=== PATIENT | female | born 2000 | race Caucasian/White ===

== ENCOUNTER 2024-04-22 10:04 | Observation (INO) | payer OTHER, SELFPAY ==
[2024-04-22 11:15] LABS: Appearance Urine Clear (Clear); Bacteria Urine 1+ /hpf; Bilirubin Urine Negative (Negative); Blood Urine Negative (Negative); Color Urine Yellow (Yellow); Glucose Urine UA Negative (Negative); Ketones Urine Negative (Negative); Leukocyte Esterase Ur 1+ LEU/UL (Negative); Nitrate Urine Negative (Negative); Non Pathogenic Casts 0-2; Protein Urine Negative (Negative); RBC Urine 0-2 /hpf (0-2); Specific Grav Ur 1.017 (1.001-1.035); Squamous Epithelial Cell Urine Few /hpf (Few); Urobilinogen Urine 0.2 mg/dL (<2.0); WBC Urine 21-50 /hpf (0-3); pH Urine 8.5 (5.0-9.0)
[2024-04-22 11:29] LABS: Add Urine Microscopic? YES
--- NOTE | 2024-04-25 11:32 | PM.OBTRLD ---
OB - Triage/Final Diagnosis Visit Information Reason for evaluation: threatened labor Comments/Additional reasons for admission: I have assessed the risk for this patient, Jazmine Bowman, and determined that she would benefit from observation care. Evaluation Laboratory results: Laboratory Tests 04/22/24 10:51 Urine Color Yellow Urine Appearance Clear Urine pH 8.5 Ur Specific [place] 1.017 Urine Protein Negative Urine Glucose (UA) Negative Urine Ketones Negative Ur Blood (Man) Negative Urine Nitrate Negative Urine Bilirubin Negative Urine Urobilinogen 0.2 Leukocyte Esterase Rfl 1+ H Urine RBC 0-2 Urine WBC 21-50 H Ur Squamous Epith Cells Few Urine Bacteria 1+ H Urine Casts 0-2
== END 2024-04-22 12:00 | disposition home or self-care (01) ==
PROVIDERS: Advanced Practice Midwife; Admitting Provider Obstetrics & Gynecology; Visit Provider Obstetrics & Gynecology
DX: O47.03 False labor before 37 completed weeks of gestation, third trimester (principal); Z3A.35 35 weeks gestation of pregnancy
CPT/HCPCS: 81001; 87086; 87088; G0378; G0379

== ENCOUNTER 2024-05-05 15:07 | Outpatient (CLI) | payer OTHER, SELFPAY ==
--- NOTE | ~2024-05-05 | US_ITS ---
EXAMINATION: US OB follow up DATE: 05/05/2024 15:36 INDICATION: Expected size less than expected for estimated gestational age TECHNIQUE: Real-time ultrasound of the pelvis was performed. The interpreting radiologist was not pre sent for the study. COMPARISON: None. FINDINGS: There is a single living fetus in vertex presentation. The placenta is posterior and not low-lying. heart rate is 146 beats per minute (bpm). The amniotic fluid index is 7.8 cm, which is normal (5th%-95%: 7.5-24.4 cm at 37 weeks estimated gestational age). The following biometric data were obtained: BPD: 8.8 cm -> 35 weeks 4 days Head circumference: 33.2 cm -> 37 weeks 6 days Abdominal circumference: 34.5 cm -> 38 weeks 3 days Femur length: 7.0 cm -> 35 weeks 6 days These measurements are concordant. Head circumference to abdominal circumference ratio: 0.96 (normal range 0.92-1.05). Estimated weight: 3189 g (+/-) 478 g or 7 lbs. 0 oz. (+/-) 1 lb. 1 oz. IMPRESSION: 1. Single living fetus in vertex presentation with heart rate of 146 bpm. 2. Gestational age by ultrasound of 37 weeks 0 day(s) +/- 2 week(s) 4 day(s) with ultrasound estimate d date of delivery (VIPUL) of 05/26/2024. Estimated weight is 66th percentile by Hadlock criteria when 05/26/2024 is used as the VIPUL. Please correlate with clinical information or earlier ultrasounds for most accurate VIPUL. 3. Normal amniotic fluid index of 7.8 cm. Reviewed, dictated and finalized at location B. IMPRESSION: 1. Single living fetus in vertex presentation with heart rate of 146 bpm. 2. Gestational age by ultrasound of 37 weeks 0 day(s) +/- 2 week(s) 4 day(s) wi th ultrasound estimated date of delivery (VIPUL) of 05/26/2024. Estimated we ight is 66th percentile by Hadlock criteria when 05/26/2024 is used as the VIPUL. Please correlate with clinical information or earlier ultrasounds for most accu rate VIPUL. 3. Normal amniotic fluid index of 7.8 cm.
== END 2024-05-05 15:08 ==
LOC: MICIMG 15:08
PROVIDERS: PCP Advanced Practice Midwife; Visit Provider Advanced Practice Midwife
DX: O36.5930 Maternal care for other known or suspected poor fetal growth, third trimester, not applicable or unspecified (principal); Z3A.37 37 weeks gestation of pregnancy
CPT/HCPCS: 76816

== ENCOUNTER 2024-05-16 16:30 | Inpatient (IN) | payer OTHER, SELFPAY ==
[2024-05-16] VITALS (94 sets, daily range): BP systolic 93–139; BP diastolic 53–101; PULSE 37–146; TEMP 36.7–36.8; O2SAT 84–100; BMI 26.3
[2024-05-16 17:51] LABS: Basophils Absolute Auto 0.1 K/mm3 (0.0-0.1); Basophils Percent Auto 0.3 % (0.2-1.2); Eosinophils Absolute Auto 0.1 K/mm3 (0-0.3); Eosinophils Percent Auto 0.4 % (0-4.4); Hematocrit 35.8 % (37.0-47.0); Hemoglobin 11.8 g/dL (12.0-15.0); Immature Granulocyte Absolute 0.12 K/mm3 (0.00-0.031); Immature Granulocyte Percent A 0.7 % (0-0.5); Lymphocytes Absolute Auto 2.73 K/mm3 (0.9-3.2); Lymphocytes Percent Auto 16.9 % (18.3-44.2); Mean Corpuscular Hemoglobin 32.2 pg (26-34); Mean Corpuscular Volume 97.5 fl (80-100); Mean Platelet Volume 10.7 fl (7.4-10.4); Monocytes Percent Auto 6.3 % (2.6-8.5); Neutrophils Absolute Auto 12.2 K/mm3 (1.3-6.7); Neutrophils Percent Auto 75.4 % (45.5-73.1); Platelet Count Result 213 k/mm3 (150-375); Red Blood Count 3.67 M/mm3 (4.2-5.4); Red Cell Distribution Width 13.4 % (11.5-14.5); White Blood Count 16.1 K/mm3 (4.5-10.0)
--- NOTE | 2024-05-16 18:39 | WPDANESEPP ---
Anes - Eval Pre Procedure Procedure: Labor Epidural Date/Time: 05/16/24 18:39 Surgeon: Robert Preop Diagnosis: Labor Pain Pre Op Diagnosis: Labor Patient Data Age: 23 Gender: F Height: Weight: Last Vital Signs Pulse 91 05/16/24 18:00 BP 126/80 05/16/24 18:00 Allergies Allergy/AdvReac Type Severity Reaction Status Date / Time No Known Allergies Allergy Verified 04/27/24 15:30 Home Medications Medication Instructions Recorded Confirmed Type ergocalciferol (vitamin D2) 1,250 1,250 mcg PO WEEKLY 04/27/24 04/27/24 History mcg (50,000 unit) capsule vits no.126-ferrous fum 1 tablet PO DAILY 04/27/24 04/27/24 History 28 mg iron-folic acid 800 mcg tablet (Classic ) valacyclovir 500 mg tablet 500 mg PO DAILY 04/27/24 04/27/24 History Laboratory Tests 05/16/24 17:43 WBC 16.1 H K/mm3 (4.5-10.0) RBC 3.67 L M/mm3 (4.2-5.4) Hgb 11.8 L g/dL (12.0-15.0) Hct 35.8 L % (37.0-47.0) MCV 97.5 fl (80-100) MCH 32.2 pg (26-34) MCHC 33.0 g/dl (32-36) RDW 13.4 % (11.5-14.5) Plt Count 213 k/mm3 (150-375) MPV 10.7 H fl (7.4-10.4) Immature Gran % (Auto) 0.7 H % (0-0.5) Neut % (Auto) 75.4 H % (45.5-73.1) Lymph % (Auto) 16.9 L % (18.3-44.2) [place] % (Auto) 6.3 % (2.6-8.5) Eos % (Auto) 0.4 % (0-4.4) Baso % (Auto) 0.3 % (0.2-1.2) Lymph # (Auto) 2.73 K/mm3 (0.9-3.2) [place] # (Auto) 1.0 H K/mm3 (0.1-0.6) Eos # (Auto) 0.1 K/mm3 (0-0.3) Baso # (Auto) 0.1 K/mm3 (0.0-0.1) Abs Immat Gran (auto) 0.12 H K/mm3 (0.00-0.031) Absolute Neuts (auto) 12.2 H K/mm3 (1.3-6.7) Absolute Nucleated RBC 0.000 K/mm3 (0.0-0.012) Nucleated RBC % 0.0 % (0.0-0.2) RPR Pending HIV 1&2 Ab/P24 Ag 4thGn Pending Blood Type Pending Antibody Screen Pending : gestational age (. VIPUL 05/26/24) Patient hx anesthesia problems: none Family hx anesthesia problems: none Results Review: All pre-operative results and documents have been reviewed as part of the pre-operative evaluation. [facility] Family History Family History Other No pertinent family history Social History Social History Substance use: never Spiritual care concerns: No Exam Day of Procedure 05/16/24 18:39 Patient weight: normal Heart: regular rate and rhythm Lungs: normal air movement Airway: Mallampati scale class II Neurological: alert and oriented
[2024-05-16 18:41] LABS: HIV 1/2 Ab P24 Ag Result Negative (Negative)
[2024-05-16] MEDS: OXYTOCIN 30 UNITS/NS 500 ML 30 UNITS/500 ML BAG IV CONT (18:50)
[2024-05-16] MEDS: LACTATED RINGERS 1,000 ML 125 ML IV CONT (18:50)
[2024-05-16 19:08] LABS: OBXCEM Leaking
[2024-05-16] MEDS: ONDANSETRON INJ 4 MG/2 ML VIAL IV PUSH (22:25)
[2024-05-17] VITALS (57 sets, daily range): BP systolic 88–133; BP diastolic 60–99; PULSE 58–128; RESP 16–20; TEMP 36.2–36.7; O2SAT 85–100
[2024-05-17] MEDS: OXYTOCIN 30 UNITS/NS 500 ML 30 UNITS/500 ML BAG 999 UNITS IV CONT (02:46)
--- NOTE | 2024-05-17 03:00 | WPDOBADMIT ---
Obstetrics - Admit Note Admission Note: record reviewed. No pertinent additions to the history and/or any subsequent changes in the physical findings that are not consistent with the expected course of the were found. Additions to the history and/or subsequent changes in the physical findings follow. Admitted from home with SROM.
--- NOTE | 2024-05-17 03:00 | PM.OBPNLAB ---
Pain Control Date/time seen: 05/17/24 CNM called 05/16/24 at 2038 for update. Pt tolerating contractions well. FHTs Cat1 per RN. Continue plan of care. Anticipate vaginal .
--- NOTE | 2024-05-17 03:01 | PM.OBPRVD ---
OB - Vaginal Delivery Note Procedure Delivery date: 05/17/24 Induction method: Per Pitocin Protocol Delivery monitor: External FHT and External Uterine Route of delivery: Episiotomy description: None Laceration Description: Superficial (periurethral) Specimen: No Quantitative Blood Loss (ml): 25 Anesthesia type: Epidural Disposition: Floor Complications: No immediate complications Narrative: Pt presented from home with SROM. There was no evidence of labor and pitocin was started. She received an epidural for pain control. Her labor progressed well and she pushed with contractions once complete. She brought the head to a crown and delivered over an intact perineum. Excellent restitution was observed. There was smooth delivery of the anterior and posterior shoulders followed by the remainder of the infant. The infant was placed on the maternal abdomen and dried and stimulated by the nursery staff. After 1 minute of life, the cord was doubly clamped and cut. Cord blood, cord gases, and cord segment were obtained. The placenta delivered spontaneously in the Schultze presentation. There was excellent uterine tone and hemostasis with very minimal blood loss. The vagina and vulva were inspected and only a 1m, superficial periurethral laceration was noted. This was hemostatic and did not require repair. All delivery counts correct. Mother and baby skin to skin in the delivery room. [place] Baby Date of : 05/17/24 Time of : 02:44 Weeks of gestation at delivery: 38 gender: Male Weight (pounds): 0 (not available at the time of this note. ) presentation: vertex position: Left Occiput Anterior Placenta delivery description: Spontaneous and Normal Configuration Cord Vessel Description: 3 Vessels and Delayed Cord Clamping score one minute: 9 score five minutes: 9
--- NOTE | 2024-05-17 03:10 | PM.OBDSVD ---
DS: Admitting Diagnosis Discharge Date DC 05/19/[address] Jones Admitting Diagnosis 23y.o. at 38 weeks SROM Term Anemia HSV+ DS: Discharge Diagnosis Discharge Diagnosis (1) (normal spontaneous vaginal delivery): Code(s): O80 - Encounter for full-term uncomplicated delivery Status: Acute (2) Intends to breastfeed: Status: Acute OB - DS: Summary Hospital Course Hospital Course: Uncomplicated OB Procedures : Ultrasound OB Procedures Intrapartum: Spontaneous Vag Delivery OB Procedures: : None Peripartum Data Infant Delivery Method: Natural Vaginal Laceration Description: Superficial (periurethral) Episiotomy description: None Time Spent with Patient Time attestation: Total time spent providing and/or coordinating discharge services: DS: Data Data Completed and Pending Labs on day of discharge: Labs from last 24 hours 05/16/24 05/16/24 17:43 16:45 WBC 16.1 H RBC 3.67 L Hgb 11.8 L Hct 35.8 L MCV 97.5 MCH 32.2 MCHC 33.0 RDW 13.4 Plt Count 213 MPV 10.7 H Immature Gran % (Auto) 0.7 H Neut % (Auto) 75.4 H Lymph % (Auto) 16.9 L [place] % (Auto) 6.3 Eos % (Auto) 0.4 Baso % (Auto) 0.3 Lymph # (Auto) 2.73 [place] # (Auto) 1.0 H Eos # (Auto) 0.1 Baso # (Auto) 0.1 Abs Immat Gran (auto) 0.12 H Absolute Neuts (auto) 12.2 H Absolute Nucleated RBC 0.000 Nucleated RBC % 0.0 Membranes Rupture Leaking Membranes Rup Com Yes RPR Pending HIV 1&2 Ab/P24 Ag 4thGn Negative Blood Type A Positive Antibody Screen Negative Discharge Plan Discharge Attending physician on discharge: Frances Jones Consulting providers: Gianna Melissa; Susan Busch; Elida Harman; Raad Brown Jr. Discharging Clinician: Frances Jones Patient Disposition: Home, Self-Care Activity: pelvic rest Diet: as tolerated Wound Care Instructions: follow printed instructions Discharge Instructions: Education: Mom and Baby Guide Given to: Mother Follow-Up: Call your delivering provider's office for an appointment to be seen in: 6 Weeks Mom and baby should come to the [facility] for the follow-up appointment. Appointment Date/Time: May 20, 2024 at 3:30 pm What to expect at your follow-up visit: Physical Assessment Call [phone] if you are unable to keep your appointment time. BREAST CARE: * Wear a snug supportive bra. * For engorgement discomfort: Bottle Feeding: * May apply ice packs EPISIOTOMY/PERINEAL CARE: * Until bleeding stops, use your anabell bottle after urinating * Change your pad frequently throughout the day * You may take sitz baths several times a day (fill your bathtub with warm water and soak for 20 minutes.) Do NOT bathe in the water * No tub baths until seen by your physician - You may shower ACTIVITY: * Rest as much as possible. * Do not exercise or lift anything heavier than your baby (such as laundry or other children.) * Avoid stairs or driving as much as possible. * Do not put anything into the vagina. No douching, tampons, or sexual activity until seen by physician. NOTIFY PHYSICIAN IF YOU HAVE ANY QUESTIONS OR IF ANY OF THE FOLLOWING SYMPTOMS OCCUR: * If your episiotomy or incision becomes red, swollen, or more painful than what you have experienced in the hospital. * If your vaginal bleeding becomes foul smelling. * If your vaginal bleeding becomes more heavy than a period or if your bleeding changes from pink to bright red. However, you may pass an occasional walnut-sized clot once or twice for the first week . * If you experience a sharp, shooting pain in you calves. * If you discover a hard, reddened area on your breast or if you experience flu-like symptoms. DIET: * Eat regular, well-balanced meals. * Drink plenty of fluids daily. If , drink to thirst. Continu
[2024-05-17] MEDS: OXYTOCIN 30 UNITS/NS 500 ML 30 UNITS/500 ML BAG 125 UNITS IV CONT (03:15)
[2024-05-17] MEDS: WITCH HAZEL 40 PADS 1 PAD TOPICAL (05:00)
[2024-05-17] MEDS: BENZOCAINE 20% AER SPR (*SP) 56 GM CAN 1 SPRAY TOPICAL (05:00)
--- NOTE | 2024-05-17 05:16 | OBPPTRN ---
Patient transferred to post room #290 via wheelchair. Support person present. Oriented to unit, room, information board, rooming in, admission packet and security measures. Patient verbalizes understanding.
[2024-05-17] MEDS: valACYclovir HCL 500 MG TABLET PO ×2 (07:21→17:40)
[2024-05-17] MEDS: IBUPROFEN 600 MG TABLET PO ×2 (07:21→17:40)
[2024-05-17] MEDS: MULTIVIT/MIN/PREN/FOL AC/IRON TABLET 1 TAB PO (07:22)
--- NOTE | 2024-05-17 07:29 | P.PNOB_ITS ---
OB - PN: Subj Subjective Date/time seen: 05/17/24 07:29 Interval history: Doing well. Urinating without difficulty. Denies passing any large clots. Denies dizziness with ambulating. Tolerating po food and fluids. Bonding with infant. Bottle feeding Patient comments: no complaints [place] baby status: doing well [place] feeding status: exclusively bottle feeding OB - PN: Obj Data Labs 05/16/24 17:43 Labs: Laboratory Results - last 24 hr 05/16/24 05/16/24 16:45 17:43 WBC 16.1 H RBC 3.67 L Hgb 11.8 L Hct 35.8 L MCV 97.5 MCH 32.2 MCHC 33.0 RDW 13.4 Plt Count 213 MPV 10.7 H Immature Gran % (Auto) 0.7 H Neut % (Auto) 75.4 H Lymph % (Auto) 16.9 L [place] % (Auto) 6.3 Eos % (Auto) 0.4 Baso % (Auto) 0.3 Lymph # (Auto) 2.73 [place] # (Auto) 1.0 H Eos # (Auto) 0.1 Baso # (Auto) 0.1 Abs Immat Gran (auto) 0.12 H Absolute Neuts (auto) 12.2 H Absolute Nucleated RBC 0.000 Nucleated RBC % 0.0 Membranes Rupture Leaking Membranes Rup Com Yes HIV 1&2 Ab/P24 Ag 4thGn Negative Blood Type A Positive Antibody Screen Negative OB - PN A/P Plan day: 0 Plan: routine care Time Spent With Patient Time: Total time spent is greater than 50% in coordination of care (as documented) at patient's floor/unit and/or counseling patient: Review of Systems Review of Systems: All systems reviewed & are unremarkable except as noted in HPI and below Exam Narrative: Alert and oriented. Mood is pleasant and cooperative. Perineum with minimal edema. Fundus firm and below umbilicus. Const: General: cooperative, healthy appearing, no acute distress and alert Orientation/consciousness: patient oriented x3 Limitations: no limitations Resp: Effort & Inspection: normal respiratory effort and able to speak in complete sentences Auscultation: clear to auscultation bilaterally Cardio: Rate: regular rate GI: Inspection: normal to inspection Auscultation: normal bowel sounds : General: Yes bladder normal to palpation External Female Exam: other (lochia WNL) Bimanual exam- vagina & uterus: bladder normal to palpation Other: Fundus firm and below U Skin: General skin exam: normal color and no rashes or lesions noted Neuro: General: patient oriented x3 and moves all extremities Cognition (Neuro): normal cognition Extrem: General: normal to inspection and no calf tenderness Psych: Appearance: grossly normal Mental Status: mental status grossly normal Affect: normal affect Thought process: Normal thought process present
--- NOTE | 2024-05-17 09:35 | WPDANLDPN2 ---
Anes-Prog Note L&D Date/Time: 05/17/24 09:35 Comfortable throughout: labor and delivery Neuraxial method: epidural Epidural/Spinal procedure site: clean & non-tender Neuro status: Neuro function grossly intact. Cardiovascular status: normal Respiratory status: normal Airway patency: baseline Mental status: baseline Post-Op hydration status: normal Vital Signs: Last Vital Signs Temp 36.7 C 05/17/24 07:05 Pulse 91 05/17/24 07:05 Resp 18 05/17/24 07:05 BP 107/60 05/17/24 07:05 Pulse Ox 99 05/17/24 05:45 O2 Del Method Room Air 05/16/24 21:56 Pain score (VAS): 0/10 Post-procedural complaints: none Patient feedback: Patient satisfied with anesthetic care.
[2024-05-17 14:31] LABS: Rapid Plasma Reagin Non-Reactive (NonReactive)
[2024-05-18] MEDS: IBUPROFEN 600 MG TABLET PO ×3 (02:23→19:40)
[2024-05-18 05:39] LABS: Hematocrit 34.3 % (37.0-47.0)
[2024-05-18 07:30] VITALS: BP 112/78; PULSE 79; RESP 18; TEMP 36.7; O2SAT 100
[2024-05-18] MEDS: MULTIVIT/MIN/PREN/FOL AC/IRON TABLET 1 TAB PO (08:30)
[2024-05-18] MEDS: valACYclovir HCL 500 MG TABLET PO ×2 (08:30→16:33)
--- NOTE | 2024-05-18 11:08 | P.PNOB_ITS ---
OB - PN: Subj Subjective Date/time seen: 05/18/24 0730 Interval history: Doing well. Urinating without difficulty. Denies passing any large clots. No dizziness. Tolerating po food and fluids. + Bonding . Bottle feeding Patient comments: no complaints and pain well controlled baby status: doing well and bottle feeding well [place] feeding status: exclusively bottle feeding OB - PN: Obj Data Labs 05/18/24 04:01 Labs: Laboratory Results - last 24 hr 05/16/24 05/18/24 17:43 04:01 Hgb 11.0 L Hct 34.3 L RPR Non-reactive OB - PN A/P Assessment and Plan (1) (normal spontaneous vaginal delivery): Code(s): O80 - Encounter for full-term uncomplicated delivery Status: Acute Plan day: 1 Plan: routine care Time Spent With Patient Time: Total time spent is greater than 50% in coordination of care (as documented) at patient's floor/unit and/or counseling patient: Review of Systems Review of Systems: All systems reviewed & are unremarkable except as noted in HPI and below Exam Narrative: Alert and oriented. Mood is pleasant and cooperative. Perineum with minimal edema. Fundus firm and below umbilicus. Const: General: cooperative, healthy appearing, no acute distress and alert Orientation/consciousness: patient oriented x3 Limitations: no limitations Resp: Effort & Inspection: normal respiratory effort and able to speak in complete sentences Auscultation: clear to auscultation bilaterally Cardio: Rate: regular rate GI: Inspection: normal to inspection Auscultation: normal bowel sounds : General: Yes bladder normal to palpation External Female Exam: other (lochia WNL) Bimanual exam- vagina & uterus: bladder normal to palpation Other: Fundus firm and below U Skin: General skin exam: normal color and no rashes or lesions noted Neuro: General: patient oriented x3 and moves all extremities Cognition (Neuro): normal cognition Extrem: General: normal to inspection and no calf tenderness Psych: Appearance: grossly normal Mental Status: mental status grossly normal Affect: normal affect Thought process: Normal thought process present
[2024-05-18] MEDS: ACETAMINOPHEN 325 MG TABLET 650 MG PO (14:03)
--- NOTE | 2024-05-18 14:51 | WPDANLDPN2 ---
Anes-Prog Note L&D Date/Time: 05/18/24 14:51 Comfortable throughout: labor and delivery Neuraxial method: epidural Epidural/Spinal procedure site: clean & non-tender Neuro status: Neuro function grossly intact. Cardiovascular status: normal Respiratory status: normal Airway patency: baseline Mental status: baseline Post-Op hydration status: normal Vital Signs: Last Vital Signs Temp 98.1 F 05/18/24 07:30 Pulse 79 05/18/24 07:30 Resp 18 05/18/24 07:30 BP 112/78 05/18/24 07:30 Pulse Ox 100 05/18/24 07:30 O2 Del Method Room Air 05/16/24 21:56 Pain score (VAS): 0/10 I/O: Intake & Output 05/17/24 05/18/24 05/18/24 23:59 07:59 15:59 Intake Total 500 Balance 500 Post-procedural complaints: none Patient feedback: Patient satisfied with anesthetic care.
[2024-05-18 19:40] VITALS: BP 118/72; PULSE 69; RESP 18; TEMP 36.8
[2024-05-19] MEDS: IBUPROFEN 600 MG TABLET PO (05:40)
[2024-05-19 07:45] VITALS: BP 121/82; PULSE 99; RESP 16; TEMP 36.1; O2SAT 99
--- NOTE | 2024-05-19 07:51 | PM.OBPNVD ---
OB - PN: Subj Subjective Date/time seen: 05/19/24 07:51 Patient comments: no complaints and pain well controlled baby status: doing well and bottle feeding well OB - PN: Obj Data Labs 05/18/24 04:01 OB - PN A/P Plan day: 2 Plan: routine care, discharge home, follow up 6 weeks and other (plans seasonale for bc) Time Spent With Patient Time: Total time spent is greater than 50% in coordination of care (as documented) at patient's floor/unit and/or counseling patient: Exam : Bimanual exam- vagina & uterus: other (Uterus firm, nt @U)
[2024-05-19] MEDS: valACYclovir HCL 500 MG TABLET PO (09:29)
[2024-05-19] MEDS: ACETAMINOPHEN 325 MG TABLET 650 MG PO (10:04)
[2024-05-20 15:55] VITALS: BP 113/67; PULSE 94; RESP 18; TEMP 36.6; O2SAT 98
== END 2024-05-19 11:30 | disposition home or self-care (01) | DRG 806 ==
LOC: ANHLDR 05-17 03:13 → ANHOB2 05-17 05:21
PROVIDERS: Admitting Provider Obstetrics & Gynecology Gynecology; PCP Advanced Practice Midwife; Visit Provider Obstetrics & Gynecology Gynecology
DX: O99.02 Anemia complicating childbirth (principal); O98.32 Other infections with a predominantly sexual mode of transmission complicating childbirth; Z37.0 Single live birth; Z3A.38 38 weeks gestation of pregnancy; D64.9 Anemia, unspecified; A60.09 Herpesviral infection of other urogenital tract; O71.82 Other specified trauma to perineum and vulva
CPT/HCPCS: 36415; 84112; 85014; 85018; 85025; 86592; 86703; 86850; 86900; 86901; A9270; G0432; J2405; J2590; J2795; J7120

== ENCOUNTER 2025-03-07 19:04 | Emergency (ER) | payer OTHER, SELFPAY ==
--- NOTE | ~2025-03-07 | US_ITS ---
EXAMINATION: US pelvic complete DATE: 03/07/2025 21:44 INDICATION: RLQ pain, 5 weeks, medical , bleeding TECHNIQUE: Multiple transabdominal sonographic images of the pelvis were obtained. COMPARISON: None. FINDINGS: Uterus: 11.0 x 5.8 x 8.3 cm. Endometrial complex is thickened and heterogeneous, measuring 21 mm, wit h some areas of color Doppler flow. Heterogeneous material distends the endocervical canal. The cervi x appears quite dilated and heterogeneous. Right Ovary: Not visualized. Left Ovary: Not visualized. Images marked as left ovary are probably too superficial and may represen t a lymph node. There is no free fluid in the pelvis. IMPRESSION: Sonographic findings concerning for retained products of conception, with related hemorrhage. Dilated heterogeneous appearing cervix, correlate with exam findings and for symptoms of cervicitis. Ovaries not visualized in this transabdominal examination. Reviewed, dictated and finalized at location K. IMPRESSION: Sonographic findings concerning for retained products of conception, with relat ed hemorrhage. Dilated heterogeneous appearing cervix, correlate with exam findings and for sy mptoms of cervicitis. Ovaries not visualized in this transabdominal examination.
--- OUTSIDE RECORDS SUMMARY | 2025-03-07 19:07 | XMS_ITS | Clinical Summary ---
Author Organization [facility] Address [address] [place] [address] Care Team Providers Care Finisher Denture Name Role Phone Unavailable Primary Care Provider Unavailabl e Allergies No known active allergies Medications L-Norgest&E estradiol-E Estrad (Ashlyna) 0.15 mg-30 mcg (84)/10 mcg (7) Tablet, Dose Pack, 3 Months Take by mouth. Active metoclopramide HCl (REGLAN) 10 mg tablet Take 1 Tablet (10 mg) by mouth every 8 hours. 120 Tablet 2 12/04/2023 Active Active Problems Problem Noted Date Diagnosed Date Second 11/05/2023 History of herpes genitalis 10/07/2023 Supervision of normal 10/07/2023 Encounters Date Type Department Care Team Description 02/21/2025 External Device Data STL ABSTRACTION Provider, Abstract 01/25/2025 External Device Data ST[facility] ABSTRACTION Provider, Abstract 01/25/2025 External Device Data [facility] ABSTRACTION Provider, Abstract 01/14/2025 External Device Data ST[facility] ABSTRACTION Provider, Abstract 01/13/2025 External Device Data ST[facility] ABSTRACTION Provider, Abstract 01/11/2025 External Device Data ST[facility] ABSTRACTION Provider, Abstract 12/28/2024 External Device Data STL ABSTRACTION Provider, Abstract from Last 3 Months Social History Tobacco Use Types Packs/Day Years Used Date Smoking Tobacco: Never Smokeless Tobacco: Never Tobacco Cessation:Counseling Given: Not Answered Alcohol Use Standard Drinks/Week Comments Not Currently 0 (1 standard drink = 0.6 oz pur e alcohol) Comments No Sex and Gender Information Value Date Recorded Sex Assigned at Not on file Legal Sex Female 9:34 AM CDT Gender Identity Not on file Sexual Orientation Not on file Last Filed Vital Signs Vital Sign Reading Time Taken Comments Blood Pressure 114/60 02/02/2024 10:06 AM CDT Pulse 103 12/22/2023 11:20 AM CONSULTANT INTERNSHIP Temperature 36.7 C (98.1 F) 12/22/2023 11:20 AM CONSULTANT INTERNSHIP Respiratory Rate 18 12/22/2023 11:20 AM CONSULTANT INTERNSHIP Oxygen Saturation 99% 12/22/2023 11:20 AM CONSULTANT INTERNSHIP Inhaled Oxygen Concentration - - Weight 64.1 kg (141 lb 6.4 oz) 02/02/2024 10:06 AM CDT Height 167.6 cm (5' 6 ) 02/02/2024 10:06 AM CDT Body Mass Index 22.82 02/02/2024 10:06 AM CDT Plan of Treatment Health Maintenance Due Date Last Done Comments DTAP/TDAP/TD VACCINES (5 - Tdap) 2012 03/12/2007, 03/12/2007, 03/12/2007, Additional history exists HPV VACCINES (1 - 3-dose series) 2016 HPV/Cotest (21-29) 2022 INFLUENZA VACCINE (#1) 2024 CHLAMYDIA SCREENING (ANNUAL) 11-24 YEARS 09/22/2024 09/22/2023, 05/29/2021 CERVICAL CANCER SCREENING 09/22/2026 PAP SMEAR 09/22/2026 09/22/2023 HEPATITIS B VACCINES Completed 12/12/2002, 05/02/2002, 02/28/2002 Procedures Procedure Name Priority Date/Time Associated Diagnosis Comments GC/CHLAMYDIA, UROGENITAL Routine 09/22/2023 10:16 AM CONSULTANT INTERNSHIP Screening for STD (sexually transmitted disease) CERV/VAG CYTO AGE BASED SCREEN PAP Routine 09/22/2023 10:16 AM CONSULTANT INTERNSHIP Screening for cervical cancer from Last 3 Months or Most Recently Relevant to Health Maintenance Results * GC/CHLAMYDIA, UROGENITAL (09/22/2023 10:16 AM CONSULTANT INTERNSHIP) C TRAC RNA NOT DETECTED NOT DETECTED [facility] N.GONORRHOEAE RNA, TMA NOT DETECTED NOT DETECTED [facility] COMMENT INFECTIOUS DISEASE [facility] Comment: The analytical performance characteristics of this assay, when used to test SurePath(TM) specimens have been determined by [facility]. The modifications have not been cleared or approved by the FDA. This assay has been validated pursuant to the CLIA regulations and is used for clinical purposes. For additional information, please refer to https://education.Sweet Tooth/faq/XAG052 (This link is being provided for information/ educational purposes only.) Test Performed at: [facility] [address] [place] [address] Breezy Andersen MD Genital SPECIMEN FROM VAGINA / Unknown 09/22/2023 10:16 AM CONSULTANT INTERNSHIP 09/23/2023 8:35 AM CONSULTANT INTERNSHIP Pat Choi GAS PUMPER MICROBIOLOGY - GENERAL ORDERABLE S Final Result [facility] [phone] [facility] [address] [place] [address] * CERV/VAG CYTO AGE BASED SCREEN PAP (09/22/2023 10:16 AM CONSULTANT INTERNSHIP) COMMENT (PAP): [facility] Comment: This order for age-based cervical cancer and STI screening follows ACOG guidelines(PB 168, 140, TFH277). See individual assays for performing site location. CLINICAL INFORMATION [facility] Comment:SCREENING HEALTHY LAST MENSTRUAL PERIOD [facility] Comment:NONE GIVEN PREV PAP: [facility] Comment:NONE GIVEN PREV BX: [facility] [place] Comment:NONE GIVEN SOURCE [facility] Comment:Endocervix ADEQUACY: [facility] Comment: Satisfactory for evaluation. Endocervical/transformation zone component present. Age and/or menstrual status not provided PAP INTERP [facility] Comment: Cytology Results: Negative for intraepithelial lesion or malignancy. CYTOLOGY INFECTION [facility] [place] Comment: Shift in vaginal rabia suggestive of bacterial vaginosis. COMMENT (PAP TEST) [facility] Comment: This Pap test has been evaluated with computer assisted technology. CENTRAL OFFICE TROUBLE SHOOTER: [facility] [place] Comment: GAZ, CT(ASCP) CT screening location: [place] [address] [facility] [address], [address], [place] [address] EXPLANATORY NOTE [facility] [place] Comment: EXPLANATORY NOTE: The Pap is a screening test for cervical cancer. It is not a diagnostic test and is subject to false negative and false positive results. It is most reliable when a satisfactory sample, regularly obtained, is submitted with relevant clinical findings and history, and when the Pap result is evaluated along with historic and current clinical information. C TRAC RNA NOT DETECTED NOT DETECTED [facility] N.GONORRHOEAE RNA, TMA NOT DETECTED NOT DETECTED [facility] COMMENT INFECTIOUS DISEASE [facility] Comment: The analytical performance characteristics of this assay, when used to test SurePath(TM) specimens have been determined by [facility]. The modifications have not been cleared or approved by the FDA. This assay has been validated pursuant to the CLIA regulations and is used for clinical purposes. For additional information, please refer to https://education.Sweet Tooth/faq/PYS289 (This link is being provided for information/ educational purposes only.) Test Performed at: [facility] [address] [place] [address] Breezy Andersen MD TX2 Genital SWAB OF ENDOCERVIX / Unknown 09/22/2023 10:16 AM CONSULTANT INTERNSHIP 09/23/2023 6:22 AM CONSULTANT INTERNSHIP Pat MORGAN PATHOLOGY/CYTOLOGY ORDERABLES Fi nal Result [facility] [phone] [place] [address] [place] [address] from Last 3 Months or Most Recently Relevant to Health Maintenance Insurance [facility] [id number] GENERIC PAYOR [employer] PPO
--- OUTSIDE RECORDS SUMMARY | 2025-03-07 19:07 | XMS_ITS | Data Portability ---
[facility] Address [address] [place] [address] Care Team Providers Care Auto Brake Technician Name Role Phone CONCEPCION SILVA Primary Care Provider Unavailab le Assessment No assessment recorded. Plan of Treatment Reminders Order Date Submit Date Provider Last Modified By Organization Details Last Modified Time Details Appointments None record ed. Lab None record ed. Referral None record ed. Procedures None record ed. Surgeries None record ed. Imaging None record ed. Medication Orders None record ed. Patient TargetsNo targets recorded. Patient InstructionsNo instructions recorded. Reason for Referral None Reported. Problems Name Problem SNOMED Code Status Onset Date Resolution Date Notes Provider Name and Address Organization Details Recorded Time Body mass index 20-24 - normal 061065057 Active 024 Natan Morrow MA null, [facility] 4 10:16:53 state 72875981 Active 024 SCOTTY Harmon Attn: Erika ruth,[address] [place], [address], [facility] 10:40:16 Problem Notes None recorded. Medical Equipment None Reported. Allergies No known drug allergies Medications Name Sig Start Date Stop Date Status Note LastModified by Organization Details LastModified Time promethazine 12.5 mg tablet 10/03 completed Not Available Not Available Not Available metronidazole 500 mg tablet 10/03 completed Not Available Not Available Not Available valacyclovir 500 mg tablet 10/03 completed Not Available Not Available Not Available cephalexin 500 mg capsule 10/03 completed Not Available Not Available Not Available ergocalciferol (vitamin D2) 1,250 mcg (50,000 unit) capsule 10/03 completed Not Available Not Available Not Available metoclopramide 10 mg tablet 10/03 completed Not Available Not Available Not Available Ashlyna 0.15 mg-30 mcg (84)/10 mcg(7) tablets,3 month dose pack active Not Available Not Available No t Available Vitals Date Recorded Body weight Body mass index (BMI) Body height Respiratory rate Oxygen saturation Oxygen saturation in Arterial blood by Pulse oximetry Heart rate Systolic blood pressure Diastolic blood pressure Provider Name and Address Organization Details Last Updated DateTime 64646.7 9 g 20.4 kg/m2 167.64 cm 18 /min 99 % 99 % 88 /min 126 mm[Hg] 82 mm[Hg] Natan Morrow [place] - [facility] 10:20:57 Date Recorded Systolic blood pressure Diastolic blood pressure Provider Name and Address Organization Details Last Updated DateTime 10/03/2024 122 mm[Hg] 82 mm[Hg] SCOTTY Harmon Attn: Accounting,[address] [place], [address], [facility] 10/03/2024 10:32:56 Social History Question Answer Notes LastModified by Organizat ion Details LastModified Time Tobacco Smoking Status Never Smoker Natan Morrow MA null, [facility] 10/03/2024 10:18:22 Do You Have An Advance Directive? No Information n ot available 10/03/2024 What Is Your Level Of Alcohol Consumption? Moderate Information not available 10/03/2024 Are You Blind Or Do You Have Difficulty Seeing? No Information n ot available 10/03/2024 What Is Your Level Of Caffeine Consumption? Moderate Information not available 10/03/2024 In The 14 Days Before Symptom Onset, Have You Had Close Contact With A Laboratory-confirm ed COVID-19 While That Case Was Ill? No Information n ot available 10/03/2024 In The 14 Days Before Symptom Onset, Have You Had Close Contact With A Person Who Is Under Investigation For COVID-19 While That Person Was Ill? No Information not available 10/03/2024 Have You Been To An Area Known To Be High Risk For COVID-19? No Information not available 10/03/2024 Are You Currently Employed? Yes Information not available 10/03/2024 Are You Deaf Or Do You Have Serious Difficulty Hearing? No Information not available 10/03/2024 What Type Of Diet Are You Following? REGULAR Information n ot available 10/03/2024 Are There Any Guns Present In Your Home? No Information not available 10/03/2024 What Was The Date Of Your Most Recent Tobacco Screening? 10/03/2024 Information not available 10/03/2024 Do You Use Your Seat Belt Or Car Seat Routinely? Yes Information not available 10/03/2024 Do You Have Smoke And Carbon Monoxide Detectors In Your Home? Yes Information not available 10/03/2024 Do You Feel Stressed (tense, Restless, Nervous, Or Anxious, Or Unable To Sleep At Night)? [id number] Information not available 10/03/2024 Do You Use Any Illicit Or Recreational Drugs? No Information not available 10/03/2024 Do You Use Sunscreen Routinely? No Information not available 10/03/2024 Has Tobacco Cessation Counseling Been Provided? No Information not available 10/03/2024 Do You Or Have You Ever Used Any Other Forms Of Tobacco Or Nicotine? No Information not available 10/03/2024 Sex: Unknown Functional Status Question Answer Note LastModified by Organizat ion Details LastModified Time Are you able to care for yourself? Yes Information not available 10/03/2024 What is your exercise level? Occasional Information not available 10/03/2024 Mental Status None recorded. Family History Nothing Reported. Medical History No medical history recorded. Gynecological History Statement/Question Response Duration of Flow (days) Current Control Method BCPs Flow Moderate Date of LMP 06/16/2024 LMP Approximate Obstetrics History GPAL:G 1 P 1 0 0 1 Type Value Full Term 1 Induced 0 Spontaneous 0 Premature 0 Living 1 Total 1 Immunizations Vaccine Type Date Status Note Provider Jesus jefferson and Address Organization Details Recorded Time Hib-Hep B 3 completed Natan [place] null, [place] - [facility] 10/03/2024 10:18:43 Hib-Hep B 2 completed [place]an [place] [facility] 10/03/2024 10:18:43 Hib-Hep B 2 completed Natan [place] [facility] 10/03/2024 10:18:43 IPV 3 completed Natan [place] [facility] 10/03/2024 10:18:43 IPV 2 completed Natan [place] [facility] 10/03/2024 10:18:43 IPV 7 completed Natan [place] [facility] 10/03/2024 10:18:43 IPV 2 completed [place]an [place] [facility] 10/03/2024 10:18:43 MMR 3 completed [place] [facility] 10/03/2024 10:18:43 MMR 7 completed [place]an [place] [facility] 10/03/2024 10:18:43 COVID-19, mRNA, LNP-S, PF, 30 mcg/0.3 mL dose 1 completed Natan [place] [facility] 10/03/2024 10:18:43 COVID-19, mRNA, LNP-S, PF, 30 mcg/0.3 mL dose 1 completed Natan [place] [facility] 10/03/2024 10:18:43 pneumococcal conjugate PCV 7 2 completed Natan [place] [facility] 10/03/2024 10:18:43 pneumococcal conjugate PCV 7 3 completed [place]an [place] [facility] 10/03/2024 10:18:43 pneumococcal conjugate PCV 7 2 completed [place]an [place] [facility] 10/03/2024 10:18:43 pneumococcal conjugate PCV 7 2 completed [place]an [place] [facility] 10/03/2024 10:18:43 varicella 3 completed STACY [place], [place] - [facility] 10/03/2024 10:18:43 varicella 7 completed STACY Wilson, [place] - [facility] 10/03/2024 10:18:43 varicella 6 completed STACY Wilson, [place] - [facility] 10/03/2024 10:18:43 meningococcal MCV4P 9 completed STACY Wilson, [place] - [facility] 10/03/2024 10:18:43 DTaP 7 completed STACY Wilson, [place] - [facility] 10/03/2024 10:18:43 DTaP, 5 pertussis antigens 3 completed STACY Wilson, [place] - [facility] 10/03/2024 10:18:43 DTaP, 5 pertussis antigens 2 completed STACY [place] - [facility] 10/03/2024 10:18:43 DTaP, 5 pertussis antigens 2 completed [place] [facility] 10/03/2024 10:18:43 DTaP, 5 pertussis antigens 2 completed STACY [place] [facility] 10/03/2024 10:18:43 Past Encounters Encounter ID Performer Location Encounter Start Date Encounter Closed Date Diagnosis/Indication Diagnosis SNOMED-CT Code Diagnosis ICD10 Code Diagnosis Note [id number] SCOTTY Harmon [facility] [place] [address] [place] [address] 10/03/2024 10:07:03 10/03/2024 10:50:27 Adult health examination 775272483 Z00.00 new pt wellness completed. labs declined because she just had them all during Body mass index 20-24 - normal 849939247 Z68.20 BMI is 20.4 state 5087133 1 Z39.2 Patient is doing very well with no acute concerns. No anxiety or depression . Her baby is sleeping through the night and very easy so far and he is eating well. Change in stool consistency 195164562 R19.5 Patient has just had some harder smaller stool since the delivery of her son 5 months ago. She has no blood in the stool. I have suggested she add a daily probiotic and continue the fiber supplement she just started and make sure she is getting enough water and not just coffee. Health Concerns Section Related Observation LastModified by Organization Detai ls LastModified Time None Recorded Concern Status LastModified by Organization Details LastModified Time None Recorded Advance Directives Directive N: Payers Encounter Date Sequence Insurance Name Policy Number Policy Craig Covered Member ID Craig Member ID Guarantor Name 10/03/2024 1 [employer] ([employer]) - OPEN ACCESS [id number] Mac Bowman [id number] PILY Bowman Notes Date Note Type Note Provider Name and Address Organization Details Recorded Time 10/03/2024 text/html 5 months post ; doing well. no c/o anxiety or depression. feeling good, sleep well. Dr. Jones is OB/gyne SCOTTY Harmon Attn: Accounting,[address] [place], [address], [facility] 10/03/2024 10:41:29 OBGyn Episode No OBEpisode recorded.
--- OUTSIDE RECORDS SUMMARY | 2025-03-07 19:07 | XMS_ITS | Referral Summary ---
Author Organization [address] Address [address] [place] [address] Care Team Providers Care Upholstery Department Supervisor Name Role Phone Unknown, Notinfile Primary Care Provider Unavail able Allergies No known active allergies Medications Ashlyna 0.15 mg-30 mcg (84)/10 mcg (7) tablets,dose pack,3 month Take 1 tablet by mouth daily 09/21/2019 Active Active Problems No known active problems Social History Tobacco Use Types Packs/Day Years Used Date Smoking Tobacco: Never Assessed Personal Safety Answer Date Recorded Getting School Help Needed Not on file 07/31 Comments Unknown Sex and Gender Information Value Date Recorded Sex Assigned at Not on file Legal Sex Female 9:56 AM CDT Gender Identity Not on file Sexual Orientation Not on file Last Filed Vital Signs Vital Sign Reading Time Taken Comments Blood Pressure 108/72 08/01/2024 10:33 AM CDT Pulse 76 08/01/2024 10:33 AM CDT Temperature 36.7 C (98.1 F) 08/01/2024 10:33 AM CDT Respiratory Rate 20 08/01/2024 10:33 AM CDT Oxygen Saturation 99% 08/01/2024 10:33 AM CDT Inhaled Oxygen Concentration - - Weight 59 kg (130 lb) 08/01/2024 10:33 AM CDT Height 167.6 cm (5' 6 ) 08/01/2024 10:33 AM CDT Body Mass Index 20.98 08/01/2024 10:33 AM CDT Plan of Treatment Not on file Insurance [facility] [id number] Care Teams Upholstery Department Supervisor Relationship Specialty Start Date End Date Unknown, Notinfile PCP - General 08/01/24
--- OUTSIDE RECORDS SUMMARY | 2025-03-07 19:07 | XMS_ITS | Clinical Summary ---
Author Organization [address] Address [address] [place] [phone] Care Team Providers Care Sales And Events Coordinator Name Role Phone Unknown, Notinfile Primary Care [...] 08/01/2024 10:33 AM CDT Plan of Treatment Health Maintenance Due Date Last Done Comments Cervical Cancer Screening 2001 Depression Screening 2001 Hepatitis C Screening 2001 DTaP/Tdap/Td Vaccine (6 - Tdap) 2012 03/12/2007, 03/12/2007, 02/06/2003, Additional history exists HPV Vaccines (1 - 3-dose series) 2016 Meningococcal B Vaccine (1 o f 2 - Standard) 2017 Regular Well Visit/Exam 18-64 2019 Covid-19 Vaccine (3 - 2023-2 5 season) 2024 03/23/2021, 02/26/2021 Influenza Vaccine (#1) 2024 Hepatitis B Screening Completed 12/12/2002 , 05/02/2002, 02/28/2002 Pneumococcal vaccine <65 Completed 003, 09/12/2002, 07/04/2002, Additional history exists Varicella Vaccines Completed 05/16/2016, 0 03/12/2007, 03/12/2007, Additional history exists Insurance [facility] [id number] Care Teams Sales And Events Coordinator Relationship Specialty Start Date End Date Unknown, Notinfile PCP - General 08/01/24
--- OUTSIDE RECORDS SUMMARY | 2025-03-07 19:07 | XMS_ITS | Clinical Summary ---
Author Organization [facility] Address [address] [place] [address] Care Team Providers Care Judicial Assistant Name Role Phone Barbra Clemente MD Primary Care Provider [phone] Allergies No known active allergies Medications ASHLYNA 0.15-0.03 &0.01 MG tabletIndication s:Heavy menses Take 1 tablet by mouth daily. 28 tablet 11 09/21/2019 Active sulfamethoxazole -trimethoprim (BACTRIM) 400-80 MG tabletIndication s:Recurrent urinary tract infection Take 1/2 tablet after intercourse . 30 tablet 06/19/2020 Active Active Problems Problem Noted Date Diagnosed Date Dysuria 02/03/2018 Urinary tract infection with hematuria, site uns pecified 02/03/2018 Heavy menses 10/10/2016 Scoliosis 05/29/2014 Resolved Problems Problem Noted Date Diagnosed Date Resolved Date Well child visit 09/12/2013 07/20/2020 Immunizations Immunization Administration Dates Next Due DTaP (Daptacel) 02/06/2003,07/04/2002,05/02/2002 ,02/07/2002 Dtap 03/12/2007 Dtap (Generic) 02/06/2003,07/04/2002,05/02/2002 ,02/07/2002 Dtp (Generic) 03/12/2007 Hepatitis B/Hib 3 Dose Schedule 12/12/2002,05/02,02/28/2002 Hib-Hepatitis B (Comvax) 12/12/2002,05/02/2002,0 02/28/2002 IPV/OPV 03/12/2007,12/12/2002,05/02/2002 ,02/07/2002 MMR 03/12/2007,12/12/2002 MMR (Generic) 03/12/2007,12/12/2002 Meningococcal (Menactra) 06/10/2019 Pneumococcal (Prevnar 13) 05/29/2003,09/12/2002, 07/04/2002,05/02/2002 Pneumococcal (Prevnar 7) 05/29/2003,09/12/2002,0 07/04/2002,05/02/2002 Polio Ipv (Generic) 03/12/2007,12/12/2002,2001,02/07/2002 Varicella Vaccine 05/16/2016,03/12/2007,02/07/20 03 Family History Medical History Relation Comments Cancer Father Hypertension Father Relation Status Comments Father Social History Tobacco Use Types Packs/Day Years Used Date Smoking Tobacco: Never Smokeless Tobacco: Never Tobacco Cessation:Counseling Given: No Alcohol Use Standard Drinks/Week Comments No 0 (1 standard drink = 0.6 oz pur e alcohol) AUDIT-C Answer Date Recorded Frequency of Alcohol Consumption Never 11/19/2018 Average Number of Drinks Not on file 019 Frequency of Binge Drinking Not on file 11/09 PHQ-2 Answer Date Recorded PHQ-2 Score 0 03/06/2020 Comments No Sex and Gender Information Value Date Recorded Sex Assigned at Not on file Legal Sex Female 8:24 PM CDT Gender Identity Not on file Sexual Orientation Not on file Occupation Industry Job Start Date Job End Date Not on file Not on file Not on file Not on file Last Filed Vital Signs Vital Sign Reading Time Taken Comments Blood Pressure 110/66 03/08/2021 8:56 AM CDT Pulse 85 03/08/2021 8:56 AM CDT Temperature 36.4 C (97.6 F) 03/08/2021 8:56 AM CDT Respiratory Rate 16 03/08/2021 8:56 AM CDT Oxygen Saturation 99% 03/08/2021 8:56 AM CDT Inhaled Oxygen Concentration - - Weight 59 kg (130 lb 1.1 oz) 03/08/2021 8:56 AM CDT Height 167.6 cm (5' 6 ) 03/08/2021 8:56 AM CDT Body Mass Index 20.99 03/08/2021 8:56 AM CDT Plan of Treatment Health Maintenance Due Date Last Done Comments Cervical Cancer Screening Pap Smear (Age 21 to 29) Every 3 Years 2001 Cervical Cancer Screening 2001 Annual Physical 2004 DTaP, Tdap and Td Vaccines (6 - Tdap) 2012 03/12/2007, 03/12/2007, 02/06/2003, Additional history exists HPV Vaccines (1 - 3-dose series) 2016 Meningococcal B Vaccine (1 of 2 - Standard) 2017 Hepatitis C 2019 COVID-19 Vaccine ( - 2023- season) 2024 Hepatitis B Vaccines Completed 12/12/2002, 12/12/2002, 05/02/2002, Additional history exists Pneumococcal Vaccine: Pediatrics (0 to 5 Years) and At-Risk Patients (6 to 49 Years) Completed 05/29/2003, 05/29/2003, 09/12/2002, Additional history exists Meningococcal Vaccine Completed 06/10/2019 RSV Immunizations Under 20 Months Aged Out No longer eligible based on patient's age to complete this topic Insurance Thingies OPEN ACCESS [facility] Thingies OPEN ACCESS [facility] [employer]ies OPEN ACCESS [facility] Thingies OPEN ACCESS [facility] Care Teams Judicial Assistant Relationship Specialty [place] [id number] [facility] [address] [place] [id number] PCP - General INTERNAL MEDICINE 02/02/25
[2025-03-07 19:14] VITALS: BP 103/70; PULSE 91; RESP 14; TEMP 37; O2SAT 99
--- OUTSIDE RECORDS SUMMARY | 2025-03-07 19:29 | XMS_ITS | Referral Summary ---
Author Organization [address] Address [address] [place] [phone] Care Team Providers Care Set Up Mechanic Coating Machines Name Role Phone Unknown, Notinfile Primary Care [...] Plan of Treatment Not on file Insurance [facility] [id number] Care Teams Set Up Mechanic Coating Machines Relationship Specialty Start Date End Date Unknown, Notinfile PCP - General 08/01/24
--- OUTSIDE RECORDS SUMMARY | 2025-03-07 19:29 | XMS_ITS | Clinical Summary ---
Author Organization [address] Address [address] [place] [address] Care Team Providers Care Special Forces Medical Sergeant Name Role Phone Unknown, Notinfile Primary Care [...] 0 03/12/2007, 03/12/2007, Additional history exists Insurance [facility] [id number] Care Teams Special Forces Medical Sergeant Relationship Specialty Start Date End Date Unknown, Notinfile PCP - General 08/01/24
--- OUTSIDE RECORDS SUMMARY | 2025-03-07 19:30 | XMS_ITS | Clinical Summary ---
Author Organization [facility] Address [address] [place] [address] Care Team Providers Care Snaker Tractor Driver Name Role Phone Barbra Clemente MD Primary Care Provider [phone] Allergies No known active allergies Medications ASHLYNA [...] patient's age to complete this topic Insurance [employer] [facility] [employer] [facility] [employer] [facility] [employer] [facility] Care Teams Snaker Tractor Driver Relationship Specialty [place] [address] [facility] [address] [place] [id number] PCP - General INTERNAL MEDICINE 02/02/25
--- OUTSIDE RECORDS SUMMARY | 2025-03-07 19:30 | XMS_ITS | Clinical Summary ---
Author Organization [facility] Address [address] [place] [address] Care Team Providers Care Pig Farm Manager Name Role Phone Unavailable Primary Care Provider [...] AM CDT Pulse 103 12/22/2023 11:20 AM DRAPERY HEAD FORMER Temperature 36.7 C (98.1 F) 12/22/2023 11:20 AM DRAPERY HEAD FORMER Respiratory Rate 18 12/22/2023 11:20 AM DRAPERY HEAD FORMER Oxygen Saturation 99% 12/22/2023 11:20 AM DRAPERY HEAD FORMER Inhaled Oxygen Concentration - - Weight 64.1 [...] Comments GC/CHLAMYDIA, UROGENITAL Routine 09/22/2023 10:16 AM DRAPERY HEAD FORMER Screening for STD (sexually transmitted disease) CERV/VAG CYTO AGE BASED SCREEN PAP Routine 09/22/2023 10:16 AM DRAPERY HEAD FORMER Screening for cervical cancer from Last 3 Months or Most Recently Relevant to Health Maintenance Results * GC/CHLAMYDIA, UROGENITAL (09/22/2023 10:16 AM DRAPERY HEAD FORMER) C TRAC RNA NOT DETECTED NOT DETECTED [facility] N.GONORRHOEAE RNA, TMA NOT DETECTED NOT DETECTED [facility] COMMENT INFECTIOUS DISEASE [facility] Comment: The analytical performance characteristics of this assay, when used to test SurePath(TM) specimens have been determined by [employer]. The modifications have not been cleared or approved by the FDA. This assay has been validated pursuant to the CLIA regulations and is used for clinical purposes. For additional information, please refer to https://education.[employer]/faq/IUF825 (This link is being provided for information/ educational purposes only.) Test Performed at: [facility] [address] [place] [address] Breezy Andersen MD Genital SPECIMEN FROM VAGINA / Unknown 09/22/2023 10:16 AM DRAPERY HEAD FORMER 09/23/2023 8:35 AM DRAPERY HEAD FORMER Pat Choi RN CASE MANAGER MICROBIOLOGY - GENERAL ORDERABLE S Final Result [facility] [phone] [facility] [address] [place] [address] * CERV/VAG CYTO AGE BASED SCREEN PAP (09/22/2023 10:16 AM DRAPERY HEAD FORMER) COMMENT (PAP): [facility] [place] Comment: This order for age-based cervical cancer and STI screening follows ACOG guidelines(PB 168, 140, NDZ748). See individual assays for performing site location. CLINICAL INFORMATION [facility] [place] [facility] Comment:SCREENING HEALTHY LAST MENSTRUAL PERIOD [facility] [place] Comment:NONE GIVEN PREV PAP: [facility] [place] Comment:NONE GIVEN PREV BX: [facility] [place] Comment:NONE GIVEN SOURCE [facility] [place] Comment:Endocervix ADEQUACY: [facility] [place] Comment: Satisfactory for evaluation. Endocervical/transformation zone component present. Age and/or menstrual status not provided PAP INTERP [facility] [place] Comment: Cytology Results: Negative for intraepithelial lesion or malignancy. CYTOLOGY INFECTION [facility] [place] Comment: Shift in vaginal rabia suggestive of bacterial vaginosis. COMMENT (PAP TEST) [facility] [place] Comment: This Pap test has been evaluated with computer assisted technology. CARPENTER'S HELPER: [facility] [place] Comment: GAZ, CT(ASCP) CT screening location: [place] [address] [facility] [address], [place] [address] EXPLANATORY NOTE [facility] [place] Comment: EXPLANATORY NOTE: The Pap is a [...] C TRAC RNA NOT DETECTED NOT DETECTED [facility] [place] N.GONORRHOEAE RNA, TMA NOT DETECTED NOT DETECTED [facility] [place] COMMENT INFECTIOUS DISEASE [facility] [place] Comment: The analytical performance characteristics of this assay, when used to test SurePath(TM) specimens have been determined by [employer]. The modifications have not been cleared or approved by the FDA. This assay has been validated pursuant to the CLIA regulations and is used for clinical purposes. For additional information, please refer to https://education.[employer]/faq/CDI263 (This link is being provided for information/ educational purposes only.) Test Performed at: [facility] [address] [place] [address] Breezy Andersen MD TX2 Genital SWAB OF ENDOCERVIX / Unknown 09/22/2023 10:16 AM DRAPERY HEAD FORMER 09/23/2023 6:22 AM DRAPERY HEAD FORMER Pat MORGAN PATHOLOGY/CYTOLOGY ORDERABLES Fi nal Result [facility] [phone] [facility] [address] [place] [address] from Last 3 Months or Most Recently Relevant to Health Maintenance Insurance [facility] [address] GENERIC PAYOR [employer] PPO
--- NOTE | 2025-03-07 20:06 | ED_ITS ---
HPI - General Chief complaint: CDL FLATBED TRUCK DRIVER Stated complaint: Heavy bleeding after taking morning after pill Time Seen by Provider: 03/07/25 19:19 Source: patient Mode of arrival: ambulatory Limitations: no limitations History of Present Illness HPI Narrative: Patient is a 24 y/o female who presents to the ED with c/o vaginal bleeding. Patient reports she was approx 5 weeks gestation w/ LNMP of 01/16. , hx of delivery last May with Dr. Jones. [facility] . She did not have any bleeding after initial round of medications. She returned to the clinic on and was given a 2nd dose of the medications. She began having bleeding then on Thursday. She states over the past couple of days, she has been having increased vaginal bleeding. States she has been filling several pads throughout the day. Began feeling somewhat lightheaded today prompted here for further evaluation. She also reports having right lower quadrant abdominal pain that began today. Denies nausea, vomiting, fevers, dysuria, hematuria. Related Data Home Medications ?Medication ?Instructions ?Recorded ?Confirmed ?Last Taken ?Type vits no.126-ferrous fum 1 tablet PO DAILY 04/27/24 05/16/24 05/16/24 History 28 mg iron-folic acid 800 mcg tablet (Classic ) valacyclovir 500 mg tablet 500 mg PO BID 04/27/24 05/16/24 05/16/24 History ferrous sulfate 27 mg iron tablet 27 mg PO BID 05/16/24 05/16/24 05/09/24 History Allergies Allergy/AdvReac Type Severity Reaction Status Date / Time No Known Allergies Allergy Verified 03/07/25 19:05 Review of Systems 2 Review of Systems: All systems reviewed & are unremarkable except as noted in HPI. All systems reviewed & are unremarkable except as noted in HPI and below PMFSH Family History Family History Other No pertinent family history Social History Social History Smoking status: Never smoker Second hand tobacco smoke exposure: No Substance use: never Do You Feel Safe in your Home?: Yes Lack of Transportation: No Lack of Food: Never True Current Housing: I Have Housing Concerned About Future Housing: No Difficulty Paying Gas/Electric Bills: No Difficulty Paying for Meds: No Currently Unemployed: No Education: High School Diploma/GED Difficulty w/ Childcare or Family Care: No Spiritual care concerns: No Exam 2 Narrative: GENERAL: Well appearing, thin, non-toxic, in no acute distress. HEAD: Normocephalic, atraumatic. RESPIRATORY: Airway patent, respirations nonlabored. Clear to auscultation bilaterally, no rales, rhonchi, wheezing. CARDIOVASCULAR: Regular rate and rhythm without murmurs, rubs, or gallops. ABDOMINAL: Soft, mild TTP in R pelvic region, no rebound. Nondistended. Normoactive BS. PELVIC: Normal external genitalia. Moderate amount of thin dark red blood in vaginal vault, spilling out of vault with initial speculum exam. No significant clots noted. No genital lesions. No significant CMT. MUSCULOSKELETAL: Moves all extremities. No gross deformities. SKIN: Warm, dry, normal color. NEURO: A&O X3. Speech clear. No ataxic movements. PSYCHIATRIC: Appropriate mood and affect. Normal interaction. Course Vital Signs Vital signs: Vital Signs Temperature 98.6 F 03/07/25 19:14 Pulse Rate 91 03/07/25 19:14 Respiratory Rate 14 03/07/25 19:14 Blood Pressure 103/70 03/07/25 19:14 Pulse Oximetry 99 03/07/25 19:14 Oxygen Delivery Room Air 03/07/25 19:14 Temperature 98.5 F 03/07/25 23:30 Pulse Rate 84 03/07/25 23:30 Respiratory Rate 16 03/07/25 23:30 Blood Pressure 124/74 03/07/25 23:30 Pulse Oximetry 99 03/07/25 23:30 Oxygen Delivery Room Air 03/07/25 19:14 MDM - OB/Uterine Contractions MDM Narrative Medical decision making narrative: Patient presented to ED with abnormal vaginal bleeding, [facility] Presents today for heavier bleeding. Vital signs are stable upon arrival. No evidence of hemodynamic instability. Cbc without leukocytosis. Hemoglobin is 11.0. This appears consistent with previous records. Beta hCG today is 12,399. Blood type is A-positive. No indication for RhoGAM. UA with possible infection, 21-50 RBC/WBC. However no urine bacteria seen. Patient w/o any urinary complaints. Likely contaminated specimen. Sent for cx. Pelvic exam did reveal a moderate amount of thin dark red blood. Difficult to clear field. Pelvic ultrasound showing retained products, associated hemorrhage, dilated cervix. Would expect to see these findings given that patient is less than 1 week out from taking abortive medications. Suspect patient is still passing products. Given amount of bleeding on pelvic exam however, will discuss with OB. Discussed case with Dr. Jones OBGYN, advised can give additional dose of Cytotec 1000mcg buccal now. Can admit overnight for observation, otherwise close f/u in office. Discussed recommendations, lab/imaging findings with patient. Utilized shared decision making. She would like to go home. She does not wish to be admitted at this time. She has remained hemodynamically stable. I advised close follow-up with Dr. Jones for further evaluation. Advised to continue to monitor bleeding, given strict return precautions should bleeding or pain become worse. Patient voiced understanding. In agreement with plan. Discharged in stable condition. Medical Records Attestation: I reviewed the patient's medical records. Lab Data Attestation: I reviewed the patient's lab results. 03/07/25 20:03 03/07/25 20:03 Labs: Lab Results 03/07/25 Range/Units 20:03 WBC 8.5 (4.5-10.0) K/mm3 RBC 3.62 L (4.2-5.4) M/mm3 Hgb 11.0 L (12.0-15.0) g/dL Hct 34.2 L (37.0-47.0) % MCV 94.5 (80-100) fl MCH 30.4 (26-34) pg MCHC 32.2 (32-36) g/dl RDW 12.1 (11.5-14.5) % Plt Count 212 (150-375) k/mm3 MPV 10.3 (7.4-10.4) fl Immature Gran % (Auto) 0.2 (0-0.5) % Neut % (Auto) 59.5 (45.5-73.1) % Lymph % (Auto) 33.1 (18.3-44.2) % [place] % (Auto) 6.3 (2.6-8.5) % Eos % (Auto) 0.5 (0-4.4) % Baso % (Auto) 0.4 (0.2-1.2) % Lymph # (Auto) 2.80 (0.9-3.2) K/mm3 [place] # (Auto) 0.5 (0.1-0.6) K/mm3 Eos # (Auto) 0.0 (0-0.3) K/mm3 Baso # (Auto) 0.0 (0.0-0.1) K/mm3 Abs Immat Gran (auto) 0.02 (0.00-0.031) K/mm3 Absolute Neuts (auto) 5.1 (1.3-6.7) K/mm3 Absolute Nucleated RBC 0.000 (0.0-0.012) K/mm3 Nucleated RBC % 0.0 (0.0-0.2) % PT 14.3 (11.1-14.7) Seconds INR 1.1 APTT 26.7 (22.3-36.8) Seconds Sodium 136 L (137-145) mmol/L Potassium 4.3 (3.4-5.0) mmol/L Chloride 103 (98-107) mmol/L Carbon Dioxide 25 (22-30) mmol/L Anion Gap 8 (4-12) mmol/L BUN 9 (7-17) mg/dL Creatinine 0.58 L (0.7-1.0) mg/dL Estim Creat Clear Calc 110 ml/min Estimated GFR > 60 (59 - ) Glucose 84 (65-110) mg/dL Calcium 9.2 (8.4-10.2) mg/dL Beta HCG, Quant 77428.00 mIU/ML Urine Color Yellow (Yellow) Urine Appearance Cloudy H (Clear) Urine pH 7.5 (5.0-9.0) Ur Specific [place] 1.018 (1.001-1.035) Urine Protein 4+ H (Negative) mg/dL Urine Glucose (UA) Negative (Negative) mg/dL Urine Ketones Negative (Negative) mg/dL Ur Blood (Man) 2+ H (Negative) Urine Nitrate Negative (Negative) Urine Bilirubin Negative (Negative) Urine Urobilinogen 0.2 (<2.0) mg/dL Leukocyte Esterase Rfl 1+ H (Negative) DANAY/UL Urine RBC 21-50 H (0-2) /hpf Urine WBC 21-50 H (0-3) /hpf Ur Squamous Epith Cells None seen (Few) /hpf Urine Bacteria None seen /hpf Urine Casts 0-2 Blood Type A Positive Antibody Screen Negative Screen Not Reportable Baby's Blood Type Not Reportable Baby's STEPHANIE Not Reportable Doses of RhIg Required 0 Imaging Data Attestation: I personally reviewed and interpreted this imaging study as follows: Radiologist's impression: ITS Impressions Pelvis Ultrasound 03/07/25 22:16 IMPRESSION: Sonographic findings concerning for retained products of conception, with related hemorrhage. Dilated heterogeneous appearing cervix, correlate with exam findings and for symptoms of cervicitis. Ovaries not visualized in this transabdominal examination. Discharge Plan Discharge Clinical Impression: Status post elective , Vaginal bleeding Patient Disposition: Home Condition: Stable Instructions: Antibiotic Form, Miscarriage (ED), Abnormal (Dysfunctional) Uterine Bleeding (ED) Additional Instructions: Follow up closely with Dr. Jones in office for further evaluation. Call office tomorrow to make appointment. You may continue Tylenol and Ibuprofen as needed for pain. Continue to monitor bleeding. Return to the ED if you experience worsening or severe pain or bleeding, unable to keep down food or drink, fevers, feeling very dizzy or lightheaded, passing out, or any other symptoms of concern Patient Language: Kyrgyz Prescriptions: No Action valacyclovir 500 mg tablet 500 mg PO BID Classic 28 mg iron- 800 mcg Tablet 1 tablet PO DAILY ferrous sulfate 27 mg iron Tablet 27 mg PO BID ibuprofen 600 mg tablet 600 mg PO Q6H PRN (Reason: pain) Qty: 30 0RF levonorgestrel-ethinyl estrad 0.15 mg-30 mcg (91) tablets,dose pack,3 month 1 tablet PO DAILY Qty: 273 1RF Rx Instructions: start 3 weeks Follow-up/Referrals: Frances Jones MD [Physician] - (OBGYN) Gianna Melissa CNM [Primary Care Provider] - Time of Disposition: 22:56
[2025-03-07 20:11] LABS: Basophils Percent Auto 0.4 % (0.2-1.2); Eosinophils Percent Auto 0.5 % (0-4.4); Hematocrit 34.2 % (37.0-47.0); Immature Granulocyte Absolute 0.02 K/mm3 (0.00-0.031); Immature Granulocyte Percent A 0.2 % (0-0.5); Lymphocytes Percent Auto 33.1 % (18.3-44.2); Mean Corpuscular HGB Conc 32.2 g/dl (32-36); Mean Corpuscular Hemoglobin 30.4 pg (26-34); Mean Corpuscular Volume 94.5 fl (80-100); Mean Platelet Volume 10.3 fl (7.4-10.4); Monocytes Absolute Auto 0.5 K/mm3 (0.1-0.6); Monocytes Percent Auto 6.3 % (2.6-8.5); Neutrophils Absolute Auto 5.1 K/mm3 (1.3-6.7); Neutrophils Percent Auto 59.5 % (45.5-73.1); Platelet Count Result 212 k/mm3 (150-375); Red Blood Count 3.62 M/mm3 (4.2-5.4); Red Cell Distribution Width 12.1 % (11.5-14.5); White Blood Count 8.5 K/mm3 (4.5-10.0)
[2025-03-07 20:22] LABS: Anion Gap 8 mmol/L (4-12); Blood Urea Nitrogen 9 mg/dL (7-17); Calcium 9.2 mg/dL (8.4-10.2); Carbon Dioxide 25 mmol/L (22-30); Chloride 103 mmol/L (98-107); Estimated CRCL calculation 110 ml/min; Estimated Glomerular Filt Rate > 60; Glucose 84 mg/dL (65-110); Potassium 4.3 mmol/L (3.4-5.0); Sodium 136 mmol/L (137-145)
[2025-03-07 20:25] LABS: Add Urine Microscopic? YES; Appearance Urine Cloudy (Clear); Bacteria Urine None Seen /hpf; Bilirubin Urine Negative (Negative); Blood Urine 2+ (Negative); Color Urine Yellow (Yellow); Glucose Urine UA Negative (Negative); Ketones Urine Negative (Negative); Leukocyte Esterase Ur 1+ LEU/UL (Negative); Nitrate Urine Negative (Negative); Non Pathogenic Casts 0-2; Protein Urine 4+ mg/dL (Negative); Specific Grav Ur 1.018 (1.001-1.035); Squamous Epithelial Cell Urine None Seen /hpf (Few); Urobilinogen Urine 0.2 mg/dL (<2.0); WBC Urine 21-50 /hpf (0-3); pH Urine 7.5 (5.0-9.0)
[2025-03-07 20:26] LABS: INR 1.1; Prothrombin Time 14.3 Seconds (11.1-14.7)
[2025-03-07 20:27] LABS: Partial Thromboplastin Time 26.7 Seconds (22.3-36.8)
[2025-03-07 20:32] LABS: RBC Urine 21-50 /hpf (0-2)
--- NOTE | 2025-03-07 20:42 | PC.NURSE ---
pt requesting to not have an iv/fluids at this time. edp dejon paul.
--- NOTE | 2025-03-07 21:52 | PC.NURSE ---
pt requesting to hold off on iv/fluids until US is back. EDP Marycruz paul.
[2025-03-07] MEDS: IBUPROFEN 600 MG TABLET PO (23:19)
[2025-03-07] MEDS: miSOPROStol 200 MCG TABLET 1000 MCG BUCCAL (23:20)
[2025-03-07 23:30] VITALS: BP 124/74; PULSE 84; RESP 16; TEMP 36.9; O2SAT 99
== END 2025-03-07 23:32 | disposition home or self-care (01) ==
PROVIDERS: Emergency Provider Physician Assistant; PCP Advanced Practice Midwife
DX: O03.6 Delayed or excessive hemorrhage following complete or unspecified spontaneous abortion (principal)
CPT/HCPCS: 36415; 76856; 80048; 81001; 84702; 85025; 85461; 85610; 85730; 86850; 86900; 86901; 87086; 96360; 99284; A9270

== ENCOUNTER 2025-03-13 00:29 | Observation (INO) | payer OTHER, SELFPAY ==
[2025-03-13] VITALS (78 sets, daily range): BP systolic 67–133; BP diastolic 23–85; PULSE 69–121; RESP 14–20; TEMP 36.7–37.7; O2SAT 79–100; BMI 19.5
--- NOTE | ~2025-03-13 | XR_ITS ---
Clinical Indication: Shortness of breath PA and lateral views of the chest: Comparison: None Findings: The lungs are clear, without evidence of focal consolidation or pleural effusion. Cardiome diastinal silhouette is within normal limits. Bones and soft tissues are unremarkable. Impression: Normal chest. Reviewed, dictated and finalized at [facility]. Impression: Normal chest.
--- OUTSIDE RECORDS SUMMARY | 2025-03-13 00:32 | XMS_ITS | Referral Summary ---
Author Organization [address] Address [address] [place] [id number] Care Team Providers Care Assistant Golf Professional Name Role Phone Unknown, Notinfile Primary Care [...] Plan of Treatment Not on file Insurance [facility] [id number] Care Teams Assistant Golf Professional Relationship Specialty Start Date End Date Unknown, Notinfile PCP - General 08/01/24
--- OUTSIDE RECORDS SUMMARY | 2025-03-13 00:32 | XMS_ITS | Data Portability ---
Author [facility] Address [address] [place] [address] Care Team Providers Care Stock Checker Name Role Phone CONCEPCION SILVA Primary Care [...] Time Body mass index 20-24 - normal 502047530 Active 024 Natan Morrow MA null, [facility] 4 10:16:53 state 01817405 Active 024 SCOTTY Harmon Attn: Erika ruth,[address] [place], [address], [facility] 4 10:40:16 Problem Notes None recorded. Medical [...] and Address Organization Details Last Updated DateTime 43566.7 9 g 20.4 kg/m2 167.64 cm 18 /min 99 % 99 % 88 /min 126 mm[Hg] 82 mm[Hg] Natan Morrow MA [place] - [facility] 10:20:57 Date Recorded Systolic blood pressure Diastolic blood pressure Provider Name and Address Organization Details Last Updated DateTime 10/03/2024 122 mm[Hg] 82 mm[Hg] SCOTTY Harmon Attn: Accounting,[address] [place], [address], [facility] 10/03/2024 10:32:56 Social History Question Answer Notes LastModified by Organizat ion Details LastModified Time Tobacco Smoking Status Never Smoker Natan Morrow MA null, [facility] 10/03/2024 10:18:22 Do You Have An [...] Anxious, Or Unable To Sleep At Night)? [id number] Information not available 10/03/2024 Do You Use [...] [facility] 10/03/2024 10:18:43 MMR 3 completed Natan Morrow [place] null, [place] [...] varicella 3 completed STACY Wilson, [place] - [facility] 10/03/2024 10:18:43 varicella 7 completed STACY Wilson, [place] - [facility] 10/03/2024 10:18:43 varicella 6 completed STACY Wilson, [place] - [facility] 10/03/2024 10:18:43 meningococcal MCV4P 9 completed STACY Wilson, [place] - [facility] 10/03/2024 10:18:43 DTaP 7 completed STACY Wilson, [place] - [facility] 10/03/2024 10:18:43 DTaP, 5 pertussis antigens 3 completed STACY Wilson, [place] - [facility] 10/03/2024 10:18:43 DTaP, 5 pertussis [...] SNOMED-CT Code Diagnosis ICD10 Code Diagnosis Note [id number] Fuentes Burns MD [facility] - [facility] [address] [place] [address] 10/03/2024 10:07:03 10/03/2024 10:50:27 Adult health examination 747532576 Z00.00 new pt wellness completed. labs declined because she just had them all during Body mass index 20-24 - normal 301306691 Z68.20 BMI is 20.4 state 8374573 1 Z39.2 Patient is doing very well with no acute concerns. No anxiety or depression . Her baby is sleeping through the night and very easy so far and he is eating well. Change in stool consistency [id number] R19.5 Patient has just had some harder [...] Craig Member ID Guarantor Name 10/03/2024 1 [employer] - OPEN ACCESS [id number] Mac Bowman [id number] PILY Bowman Notes Date Note Type Note Provider Name and Address Organization Details Recorded Time 10/03/2024 text/html 5 months post ; doing well. no c/o anxiety or depression. feeling good, sleep well. Dr. Jones is OB/gyne SCOTTY Harmon Attn: Accounting,[address] [place], [address], [facility] 10/03/2024 10:41:29 OBGyn Episode No OBEpisode recorded.
--- OUTSIDE RECORDS SUMMARY | 2025-03-13 00:32 | XMS_ITS | Clinical Summary ---
Author Organization [address] Address [address] [place] [address] Care Team Providers Care Yacht Builder Name Role Phone Unknown, Notinfile Primary Care [...] 0 03/12/2007, 03/12/2007, Additional history exists Insurance [facility] [id number] Care Teams Yacht Builder Relationship Specialty Start Date End Date Unknown, Notinfile PCP - General 08/01/24
--- OUTSIDE RECORDS SUMMARY | 2025-03-13 00:32 | XMS_ITS | Clinical Summary ---
[facility] Organization [facility] Address [address] [place] [address] Care Team Providers Care Bread Oven Operator Name Role Phone Unavailable Primary Care Provider [...] AM CDT Pulse 103 12/22/2023 11:20 AM STAFF ACCOUNTANT Temperature 36.7 C (98.1 F) 12/22/2023 11:20 AM STAFF ACCOUNTANT Respiratory Rate 18 12/22/2023 11:20 AM STAFF ACCOUNTANT Oxygen Saturation 99% 12/22/2023 11:20 AM STAFF ACCOUNTANT Inhaled Oxygen Concentration - - Weight 64.1 [...] Comments GC/CHLAMYDIA, UROGENITAL Routine 09/22/2023 10:16 AM STAFF ACCOUNTANT Screening for STD (sexually transmitted disease) CERV/VAG CYTO AGE BASED SCREEN PAP Routine 09/22/2023 10:16 AM STAFF ACCOUNTANT Screening for cervical cancer from Last 3 Months or Most Recently Relevant to Health Maintenance Results * GC/CHLAMYDIA, UROGENITAL (09/22/2023 10:16 AM STAFF ACCOUNTANT) C TRAC RNA NOT DETECTED NOT DETECTED [facility] N.GONORRHOEAE RNA, TMA NOT DETECTED NOT DETECTED [facility] COMMENT INFECTIOUS DISEASE [facility] Comment: The analytical performance characteristics of this assay, when used to test SurePath(TM) specimens have been determined by [facility]. The modifications have not been cleared or approved by the FDA. This assay has been validated pursuant to the CLIA regulations and is used for clinical purposes. For additional information, please refer to https://education.Baxano/faq/UQO450 (This link is being provided for information/ educational purposes only.) Test Performed at: [facility] [id number] [place] [address] Breezy Andersen MD Genital SPECIMEN FROM VAGINA / Unknown 09/22/2023 10:16 AM STAFF ACCOUNTANT 09/23/2023 8:35 AM STAFF ACCOUNTANT Pat Choi TELEPHONE SERVICE ADVISER MICROBIOLOGY - GENERAL ORDERABLE S Final Result [facility] [phone] [facility] [id number] [place] [address] * CERV/VAG CYTO AGE BASED SCREEN PAP (09/22/2023 10:16 AM STAFF ACCOUNTANT) COMMENT (PAP): [facility] Comment: This order for age-based cervical cancer and STI screening follows ACOG guidelines(PB 168, 140, YFO604). See individual assays for performing site location. CLINICAL INFORMATION [facility] Comment:SCREENING HEALTHY LAST MENSTRUAL PERIOD [facility] Comment:NONE GIVEN PREV PAP: [facility] Comment:NONE GIVEN PREV BX: [facility] Comment:NONE GIVEN SOURCE [facility] Comment:Endocervix ADEQUACY: [facility] Comment: Satisfactory for evaluation. Endocervical/transformation zone component present. Age and/or menstrual status not provided PAP INTERP [facility] Comment: Cytology Results: Negative for intraepithelial lesion or malignancy. CYTOLOGY INFECTION [facility] Comment: Shift in vaginal rabia suggestive of bacterial vaginosis. COMMENT (PAP TEST) [facility] Comment: This Pap test has been evaluated with computer assisted technology. PROGRAM SPECIALIST: [facility] Comment: GAZ, CT(ASCP) CT screening location: [place] [address] [facility] [address], [place] [address] EXPLANATORY NOTE [facility] Comment: EXPLANATORY NOTE: The Pap is a [...] C TRAC RNA NOT DETECTED NOT DETECTED [facility] N.GONORRHOEAE RNA, TMA NOT DETECTED NOT DETECTED [facility] COMMENT INFECTIOUS DISEASE [facility] Comment: The analytical performance characteristics of this assay, when used to test SurePath(TM) specimens have been determined by [facility]. The modifications have not been cleared or approved by the FDA. This assay has been validated pursuant to the CLIA regulations and is used for clinical purposes. For additional information, please refer to https://education.Baxano/faq/NTU560 (This link is being provided for information/ educational purposes only.) Test Performed at: [facility] [id number] [place] [address] Breezy Andersen MD TX2 Genital SWAB OF ENDOCERVIX / Unknown 09/22/2023 10:16 AM STAFF ACCOUNTANT 09/23/2023 6:22 AM STAFF ACCOUNTANT Pat MORGAN PATHOLOGY/CYTOLOGY ORDERABLES Fi nal Result [facility] [phone] [facility] [address] [place] [address] from Last 3 Months or Most Recently Relevant to Health Maintenance Insurance [facility] [address] GENERIC PAYOR [employer] PPO
--- OUTSIDE RECORDS SUMMARY | 2025-03-13 00:32 | XMS_ITS | Clinical Summary ---
Author Organization [facility] Address [address] [place] [address] Care Team Providers Care Sales Enablement Specialist Name Role Phone Barbra Clemente MD Primary Care Provider [phone] Allergies No known active allergies Medications ASHLYNA [...] patient's age to complete this topic Insurance [employer] [facility] [facility] [employer] [facility] [employer] [facility] Care Teams Sales Enablement Specialist Relationship Specialty [place] [address] [facility] [address] [place] [address] PCP - General INTERNAL MEDICINE 02/02/25
[2025-03-13 01:08] LABS: Basophils Percent Auto 0.5 % (0.2-1.2); Eosinophils Absolute Auto 0.1 K/mm3 (0-0.3); Eosinophils Percent Auto 1.3 % (0-4.4); Hematocrit 24.3 % (37.0-47.0); Hemoglobin 7.6 g/dL (12.0-15.0); Immature Granulocyte Absolute 0.01 K/mm3 (0.00-0.031); Immature Granulocyte Percent A 0.2 % (0-0.5); Lymphocytes Absolute Auto 2.95 K/mm3 (0.9-3.2); Mean Corpuscular HGB Conc 31.3 g/dl (32-36); Mean Platelet Volume 9.9 fl (7.4-10.4); Monocytes Absolute Auto 0.4 K/mm3 (0.1-0.6); Neutrophils Absolute Auto 2.6 K/mm3 (1.3-6.7); Platelet Count Result 236 k/mm3 (150-375); Red Blood Count 2.53 M/mm3 (4.2-5.4); Red Cell Distribution Width 12.5 % (11.5-14.5)
--- OUTSIDE RECORDS SUMMARY | 2025-03-13 01:11 | XMS_ITS | Referral Summary ---
Author Organization [address] Address [address] [place] [address] Care Team Providers Care Fuse Assembler Name Role Phone Unknown, Notinfile Primary Care [...] Plan of Treatment Not on file Insurance [facility] [id number] Care Teams Fuse Assembler Relationship Specialty Start Date End Date Unknown, Notinfile PCP - General 08/01/24
--- OUTSIDE RECORDS SUMMARY | 2025-03-13 01:11 | XMS_ITS | Clinical Summary ---
Author Organization [address] Address [address] [place] [address] Care Team Providers Care Improvement Advisor Name Role Phone Unknown, Notinfile Primary Care [...] 0 03/12/2007, 03/12/2007, Additional history exists Insurance [facility] [id number] Care Teams Improvement Advisor Relationship Specialty Start Date End Date Unknown, Notinfile PCP - General 08/01/24
--- OUTSIDE RECORDS SUMMARY | 2025-03-13 01:12 | XMS_ITS | Clinical Summary ---
[facility] Organization [facility] Address [address] [place] [address] Care Team Providers Care Back Joiner Name Role Phone Unavailable Primary Care Provider [...] AM CDT Pulse 103 12/22/2023 11:20 AM ELECTRICAL DESIGNER DRAFTER Temperature 36.7 C (98.1 F) 12/22/2023 11:20 AM ELECTRICAL DESIGNER DRAFTER Respiratory Rate 18 12/22/2023 11:20 AM ELECTRICAL DESIGNER DRAFTER Oxygen Saturation 99% 12/22/2023 11:20 AM ELECTRICAL DESIGNER DRAFTER Inhaled Oxygen Concentration - - Weight 64.1 [...] Comments GC/CHLAMYDIA, UROGENITAL Routine 09/22/2023 10:16 AM ELECTRICAL DESIGNER DRAFTER Screening for STD (sexually transmitted disease) CERV/VAG CYTO AGE BASED SCREEN PAP Routine 09/22/2023 10:16 AM ELECTRICAL DESIGNER DRAFTER Screening for cervical cancer from Last 3 Months or Most Recently Relevant to Health Maintenance Results * GC/CHLAMYDIA, UROGENITAL (09/22/2023 10:16 AM ELECTRICAL DESIGNER DRAFTER) C TRAC RNA NOT DETECTED NOT DETECTED [facility] N.GONORRHOEAE RNA, TMA NOT DETECTED NOT DETECTED [facility] COMMENT INFECTIOUS DISEASE [facility] Comment: The analytical performance characteristics of this assay, when used to test SurePath(TM) specimens have been determined by [facility]. The modifications have not been cleared or approved by the FDA. This assay has been validated pursuant to the CLIA regulations and is used for clinical purposes. For additional information, please refer to https://education.Biosystem Development/faq/TKY659 (This link is being provided for information/ educational purposes only.) Test Performed at: [facility] [id number] [place] [address] Breezy Andersen MD Genital SPECIMEN FROM VAGINA / Unknown 09/22/2023 10:16 AM ELECTRICAL DESIGNER DRAFTER 09/23/2023 8:35 AM ELECTRICAL DESIGNER DRAFTER Pat Choi TOBACCO BALER MICROBIOLOGY - GENERAL ORDERABLE S Final Result [facility] [phone] [facility] [id number] [place] [address] * CERV/VAG CYTO AGE BASED SCREEN PAP (09/22/2023 10:16 AM ELECTRICAL DESIGNER DRAFTER) COMMENT (PAP): [facility] [place] Comment: This order for age-based cervical cancer and STI screening follows ACOG guidelines(PB 168, 140, DNO540). See individual assays for performing site location. CLINICAL INFORMATION [facility] Comment:SCREENING HEALTHY LAST MENSTRUAL PERIOD [facility] Comment:NONE GIVEN PREV PAP: [facility] Comment:NONE GIVEN PREV BX: [facility] Comment:NONE GIVEN SOURCE [facility] Comment:Endocervix ADEQUACY: [facility] Comment: Satisfactory for evaluation. Endocervical/transformation zone component present. Age and/or menstrual status not provided PAP INTERP [facility] [place] Comment: Cytology Results: Negative for intraepithelial lesion or malignancy. CYTOLOGY INFECTION [facility] Comment: Shift in vaginal rabia suggestive of bacterial vaginosis. COMMENT (PAP TEST) [facility] Comment: This Pap test has been evaluated with computer assisted technology. SYSTEMS APPLICATIONS PROGRAMMING LEAD: [facility] Comment: GAZ, CT(ASCP) CT screening location: [place] [address] [facility] [address], [place] [address] EXPLANATORY NOTE [facility] Comment: EXPLANATORY NOTE: The Pap is a [...] C TRAC RNA NOT DETECTED NOT DETECTED [facility] N.GONORRHOEAE RNA, TMA NOT DETECTED NOT DETECTED [facility] COMMENT INFECTIOUS DISEASE [facility] [place] Comment: The analytical performance characteristics of this assay, when used to test SurePath(TM) specimens have been determined by [facility]. The modifications have not been cleared or approved by the FDA. This assay has been validated pursuant to the CLIA regulations and is used for clinical purposes. For additional information, please refer to https://education.Biosystem Development/faq/MFJ297 (This link is being provided for information/ educational purposes only.) Test Performed at: [facility] [address] [place] [address] Breezy Andersen MD TX2 Genital SWAB OF ENDOCERVIX / Unknown 09/22/2023 10:16 AM ELECTRICAL DESIGNER DRAFTER 09/23/2023 6:22 AM ELECTRICAL DESIGNER DRAFTER Pat MORGAN PATHOLOGY/CYTOLOGY ORDERABLES Fi nal Result [facility] [phone] [employer] [address] [place] [address] from Last 3 Months or Most Recently Relevant to Health Maintenance Insurance [facility] [address] GENERIC PAYOR [employer] PPO
--- OUTSIDE RECORDS SUMMARY | 2025-03-13 01:12 | XMS_ITS | Clinical Summary ---
Author Organization [facility] Address [address] [place] [address] Care Team Providers Care Tool Machine Setup Operator Name Role Phone Barbra Clemente MD Primary Care Provider [phone] Allergies No known active allergies Medications ASHLYNA [...] patient's age to complete this topic Insurance [employer] [facility] [employer] OPEN [facility] [employer] [facility] [employer] [facility] Care Teams Tool Machine Setup Operator Relationship Specialty [place] [address] [facility] [address] [place] [id number] PCP - General INTERNAL MEDICINE 02/02/25
[2025-03-13 01:18] LABS: INR 1.1; Prothrombin Time 14.7 Seconds (11.1-14.7)
[2025-03-13 01:19] LABS: Partial Thromboplastin Time 23.7 Seconds (22.3-36.8)
[2025-03-13 01:21] LABS: Anion Gap 11 mmol/L (4-12); Blood Urea Nitrogen 8 mg/dL (7-17); Calcium 8.2 mg/dL (8.4-10.2); Carbon Dioxide 20 mmol/L (22-30); Chloride 106 mmol/L (98-107); Estimated CRCL calculation 94 ml/min; Estimated Glomerular Filt Rate > 60; Glucose 107 mg/dL (65-110); Potassium 3.5 mmol/L (3.4-5.0); Sodium 137 mmol/L (137-145)
[2025-03-13 01:38] LABS: Beta HCG Quantitative 888.88 mIU/ML
--- NOTE | 2025-03-13 01:54 | ED_ITS ---
HPI - General Chief complaint: Vaginal Bleeding <SHEKHAR Dee Last Filed: 03/13/25 02:48> Stated complaint: vaginal bleeding, SOB <SHEKHAR Dee Last Filed: 03/13/25 02:48> Time Seen by Provider: 03/13/25 00:41 <SHEKHAR Dee Last Filed: 03/13/25 02:48> Source: patient <SHEKHAR Dee Filed: 03/13/25 02:48> Mode of arrival: ambulatory <SHEKHAR Dee Filed: 03/13/25 02:48> Limitations: no limitations <SHEKHAR Dee Filed: 03/13/25 02:48> History of Present Illness HPI Narrative: Patient is a 24-year-old female who presents the ED with report of vaginal bleeding. [facility]28 and 03/02). Seen in the ED here on 03/07 for heavy vaginal bleeding. She received an additional dose of Cytotec at that time, was offered admission, but declined. She followed up with her OBGYN, Dr. Jones, the next day. She had a pelvic exam performed in the office in several blood clots were removed. Patient reports she has since had persistent bleeding, though it has slowed. She did pass a large blood clot today, about the size of her hand. Began feeling dizzy, lightheaded, short of breath today, which prompted her presentation. She also reports a migraine headache. Denies significant abdominal cramping. Denies nausea, vomiting. Denies fevers. Denies chest pain. <SHEKHAR Dee Last Filed: 03/13/25 02:48> Related Data Home medications: Home Medications ?Medication ?Instructions ?Recorded ?Confirmed ?Last Taken ?Type vits no.126-ferrous fum 1 tablet PO DAILY 04/27/24 05/16/24 05/16/24 History 28 mg iron-folic acid 800 mcg tablet (Classic ) valacyclovir 500 mg tablet 500 mg PO BID 04/27/24 05/16/24 05/16/24 History ferrous sulfate 27 mg iron tablet 27 mg PO BID 05/16/24 05/16/24 05/09/24 History <Marycruz Neumann PA-C - Last Filed: 03/13/25 02:48> Allergies/Adverse reactions: Allergies Allergy/AdvReac Type Severity Reaction Status Date / Time No Known Allergies Allergy Verified 03/13/25 00:39 <Marycruz Neumann PA-C - Last Filed: 03/13/25 02:48> Review of Systems 2 Review of Systems: All systems reviewed & are unremarkable except as noted in HPI. <Marycruz Neumann PA-C - Last Filed: 03/13/25 02:48> All systems reviewed & are unremarkable except as noted in HPI and below < Marycruz Neumann PA-C - Last Filed: 03/13/25 02:48> [facility] Family History Family History: Family History Other No pertinent family history <Marycruz Neumann PA-C - Last Filed: 03/13/25 02:48> Social History Social History: Social History Smoking status: Never smoker Second hand tobacco smoke exposure: No Substance use: never Do You Feel Safe in your Home?: Yes Lack of Transportation: No Lack of Food: Never True Current Housing: I Have Housing Concerned About Future Housing: No Difficulty Paying Gas/Electric Bills: No Difficulty Paying for Meds: No Currently Unemployed: No Education: High School Diploma/GED Difficulty w/ Childcare or Family Care: No Spiritual care concerns: No <Marycruz Neumann PA-C - Last Filed: 03/13/25 02:48> Exam 2 Narrative: GENERAL: Well appearing, thin, non-toxic, in no acute distress. HEAD: Normocephalic, atraumatic. RESPIRATORY: Airway patent, respirations nonlabored. Clear to auscultation bilaterally, no rales, rhonchi, wheezing. No focal lung sounds. CARDIOVASCULAR: Regular rate and rhythm without murmurs, rubs, or gallops. ABDOMINAL: Soft, no significant tenderness throughout abdomen, nondistended. Normoactive BS. MUSCULOSKELETAL: Moves all extremities. No gross deformities. SKIN: Warm, dry, normal color. NEURO: A&O X3. Speech clear. PSYCHIATRIC: Appropriate mood and affect. Normal interaction. <Marycruz Neumann PA-C - Last Filed: 03/13/25 02:48> Course CLERK TELEVISION PRODUCTION/PA Physician Supervision For this patient encounter, I reviewed the CLERK TELEVISION PRODUCTION or PA documentation, treatment plan, and medical decision making; and I had [id number] time with this patient. <Nabor Menendez MD - Last Filed: 03/13/25 03:23> Vital Signs Vital signs: Vital Signs Temperature 98.0 F 03/13/25 00:36 Pulse Rate 89 03/13/25 00:36 Respiratory Rate 20 03/13/25 00:36 Blood Pressure 133/85 03/13/25 00:36 Pulse Oximetry 100 03/13/25 00:36 Oxygen Delivery Room Air 03/13/25 00:36 Temperature 98.4 F 03/13/25 03:17 Pulse Rate 91 03/13/25 03:17 Respiratory Rate 14 03/13/25 03:17 Blood Pressure 110/76 03/13/25 03:17 Pulse Oximetry 100 03/13/25 03:17 Oxygen Delivery Room Air 03/13/25 00:36 <Marycruz Neumann PA-C - Last Filed: 03/13/25 02:48> Vital Signs Temperature 98.0 F 03/13/25 00:36 Pulse Rate 89 03/13/25 00:36 Respiratory Rate 20 03/13/25 00:36 Blood Pressure 133/85 03/13/25 00:36 Pulse Oximetry 100 03/13/25 00:36 Oxygen Delivery Room Air 03/13/25 00:36 Temperature 98.4 F 03/13/25 03:17 Pulse Rate 91 03/13/25 03:17 Respiratory Rate 14 03/13/25 03:17 Blood Pressure 110/76 03/13/25 03:17 Pulse Oximetry 100 03/13/25 03:17 Oxygen Delivery Room Air 03/13/25 00:36 <Nabor Menendez MD - Last Filed: 03/13/25 03:23> MDM - OB/Uterine Contractions MDM Narrative Medical decision making narrative: Patient presented to ED with ongoing vaginal bleeding status post elective medical 2 weeks ago. Now with shortness of breath, dizziness lightheadedness. She was also seen in the ED last week, had fairly significant bleeding, was offered admission, but declined at that time. Vital signs are stable upon arrival. Patient is hemodynamically stable. Cbc without leukocytosis. Hemoglobin has dropped several points. Records last week showed hemoglobin in the 11 range, today 7.6. Platelets within normal range. Remainder of laboratory studies are unremarkable. Beta hCG down trending from 12,400 last week to 888 today. Patient's blood type is A positive. Chest x-ray interpreted by myself without focal findings. EKG with NSR, no concerning ST changes Given acute symptomatology with large drop in hemoglobin over the past 1 week with ongoing bleeding, will transfuse 1 unit. Will admit for further evaluation by OBGYN, possibly repeat US in the am vs surgical procedure. Discussed case with Dr. Lira, OBGYN education and training coordinator for Dr. Jones (patient's OBGYN), agreed w/ plan, can admit under Dr. Jones. Patient is in agreement with plan and admission. <Marycruz Neumann PA-C - Last Filed: 03/13/25 02:48> Medical Records Attestation: I reviewed the patient's medical records. <Marycruz Neumann PA-C - Last Filed: 03/13/25 02:48> Lab Data Attestation: I reviewed the patient's lab results. <Marycruz Neumann PA-C - Last Filed: 03/13/25 02:48> Result diagrams: 03/13/25 01:02 03/13/25 01:02 <SHEKHAR Dee Last Filed: 03/13/25 02:48> Labs: Lab Results 03/13/25 Range/Units 01:02 WBC 6.0 (4.5-10.0) K/mm3 RBC 2.53 L (4.2-5.4) M/mm3 Hgb 7.6 L D (12.0-15.0) g/dL Hct 24.3 L (37.0-47.0) % MCV 96.0 (80-100) fl MCH 30.0 (26-34) pg MCHC 31.3 L (32-36) g/dl RDW 12.5 (11.5-14.5) % Plt Count 236 (150-375) k/mm3 MPV 9.9 (7.4-10.4) fl Immature Gran % (Auto) 0.2 (0-0.5) % Neut % (Auto) 43.0 L (45.5-73.1) % Lymph % (Auto) 49.0 H (18.3-44.2) % Florence % (Auto) 6.0 (2.6-8.5) % Eos % (Auto) 1.3 (0-4.4) % Baso % (Auto) 0.5 (0.2-1.2) % Lymph # (Auto) 2.95 (0.9-3.2) K/mm3 Florence # (Auto) 0.4 (0.1-0.6) K/mm3 Eos # (Auto) 0.1 (0-0.3) K/mm3 Baso # (Auto) 0.0 (0.0-0.1) K/mm3 Abs Immat Gran (auto) 0.01 (0.00-0.031) K/mm3 Absolute Neuts (auto) 2.6 (1.3-6.7) K/mm3 Absolute Nucleated RBC 0.000 (0.0-0.012) K/mm3 Nucleated RBC % 0.0 (0.0-0.2) % PT 14.7 (11.1-14.7) Seconds INR 1.1 APTT 23.7 (22.3-36.8) Seconds Sodium 137 (137-145) mmol/L Potassium 3.5 (3.4-5.0) mmol/L Chloride 106 (98-107) mmol/L Carbon Dioxide 20 L (22-30) mmol/L Anion Gap 11 (4-12) mmol/L BUN 8 (7-17) mg/dL Creatinine 0.69 L (0.7-1.0) mg/dL Estim Creat Clear Calc 94 ml/min Estimated GFR > 60 (59 - ) Glucose 107 (65-110) mg/dL Calcium 8.2 L (8.4-10.2) mg/dL Beta HCG, Quant 888.88 mIU/ML Blood Type A Positive Antibody Screen Negative Crossmatch See Detail <Marycruz Neumann PA-C - Last Filed: 03/13/25 02:48> Lab Results 03/13/25 Range/Units 01:02 WBC 6.0 (4.5-10.0) K/mm3 RBC 2.53 L (4.2-5.4) M/mm3 Hgb 7.6 L D (12.0-15.0) g/dL Hct 24.3 L (37.0-47.0) % MCV 96.0 (80-100) fl MCH 30.0 (26-34) pg MCHC 31.3 L (32-36) g/dl RDW 12.5 (11.5-14.5) % Plt Count 236 (150-375) k/mm3 MPV 9.9 (7.4-10.4) fl Immature Gran % (Auto) 0.2 (0-0.5) % Neut % (Auto) 43.0 L (45.5-73.1) % Lymph % (Auto) 49.0 H (18.3-44.2) % Florence % (Auto) 6.0 (2.6-8.5) % Eos % (Auto) 1.3 (0-4.4) % Baso % (Auto) 0.5 (0.2-1.2) % Lymph # (Auto) 2.95 (0.9-3.2) K/mm3 Florence # (Auto) 0.4 (0.1-0.6) K/mm3 Eos # (Auto) 0.1 (0-0.3) K/mm3 Baso # (Auto) 0.0 (0.0-0.1) K/mm3 Abs Immat Gran (auto) 0.01 (0.00-0.031) K/mm3 Absolute Neuts (auto) 2.6 (1.3-6.7) K/mm3 Absolute Nucleated RBC 0.000 (0.0-0.012) K/mm3 Nucleated RBC % 0.0 (0.0-0.2) % PT 14.7 (11.1-14.7) Seconds INR 1.1 APTT 23.7 (22.3-36.8) Seconds Sodium 137 (137-145) mmol/L Potassium 3.5 (3.4-5.0) mmol/L Chloride 106 (98-107) mmol/L Carbon Dioxide 20 L (22-30) mmol/L Anion Gap 11 (4-12) mmol/L BUN 8 (7-17) mg/dL Creatinine 0.69 L (0.7-1.0) mg/dL Estim Creat Clear Calc 94 ml/min Estimated GFR > 60 (59 - ) Glucose 107 (65-110) mg/dL Calcium 8.2 L (8.4-10.2) mg/dL Beta HCG, Quant 888.88 mIU/ML Blood Type A Positive Antibody Screen Negative Crossmatch See Detail <Nabor Menendez MD - Last Filed: 03/13/25 03:23> Imaging Data Attestation: I personally reviewed and interpreted this imaging study as follows: < SHEKHAR Dee Last Filed: 03/13/25 02:48> My impression: CXR: Clear <Marycruz Neumann PA-C - Last Filed: 03/13/25 02:48> Discharge Plan Discharge Clinical Impression: Symptomatic anemia, Vaginal bleeding, History of elective <SHEKHAR Dee Last Filed: 03/13/25 02:48> Patient Disposition: Still a Patient <SHEKHAR Dee Last Filed: 03/13/25 02:48> Condition: Stable <SHEKHAR Dee Last Filed: 03/13/25 02:48>
--- NOTE | 2025-03-13 01:54 | ECG_ITS ---
Test Date: 2025-03-13 02:15:39 Measurements Intervals [place] Rate: 86 P: 74 VA: 125 QRS: 80 QRSD: 101 T: 57 QT: 345 QTc: 414 Interpretive Statements SINUS RHYTHM No previous ECG available for comparison Electronically Signed On 03-13-2025 06:44:10 CDT by Violette Humphrey M.D.
[2025-03-13] MEDS: SODIUM CHLORIDE 0.9% IV 1,000 ML 999 ML IV CONT (02:57)
[2025-03-13] MEDS: SODIUM CHLORIDE 0.9% IV 250 ML 30 ML IV CONT (02:57)
[2025-03-13] MEDS: TUBING, BLOOD PLUM PUMP TUBING 1 EACH XX (02:59)
--- NOTE | 2025-03-13 03:35 | PC.NURSE ---
0330- RN notified Soraya CAMPBELL that patient is coming over to OB and called to clarify orders. gave orders to give just the one unit of blood and to repeat H&H at 0900. also gave orders for Motrin and to notify him if patient's bleeding is not any better.
--- NOTE | 2025-03-13 04:02 | OBADM ---
This patient, Jazmine Bowman, admitted to the OB room OB Post 111 for observation. Patient/family oriented to hospital policies and general routines including ID bracelet, bed and alarms, visiting hours, pain management, procedures, bathroom and other care routines, personal items, smoking policy, room service/diet, and visiting hours. Patient/Family are encouraged to report perceived risks to care and to ask questions if they do not understand what they are told or what they should do.
[2025-03-13] MEDS: diphenhydrAMINE HCl INJ 50 MG/ML VIAL IV PUSH (04:23)
[2025-03-13] MEDS: SODIUM CHLORIDE 0.9% IV 1,000 ML 125 ML (04:24)
[2025-03-13] MEDS: ACETAMINOPHEN 325 MG TABLET 650 MG PO (04:38)
--- NOTE | 2025-03-13 05:09 | PC.NURSE ---
Called and notified Dr. Lira of transfusion reaction and treatment with NS IVF, Tylenol and Benadryl.
[2025-03-13 05:11] LABS: Total Bilirubin Imm Post TxRxn 0.4 mg/dL (0.2-1.3)
[2025-03-13 06:11] LABS: TXRXN Occult Blood Urine Immed 3+ (Negative)
[2025-03-13 06:12] LABS: TXRXN RBC Urine Immediate >75 /hpf (0-2)
[2025-03-13] MEDS: IBUPROFEN 600 MG TABLET PO (06:55)
--- NOTE | 2025-03-13 08:52 | P.HP_ITS ---
H&P: HPI History of Present Illness Date/Time: 03/13/25 08:52 Chief Complaint: SOB and headache with continued vaginal bleeding Narrative: 24 yo s/p medical . Patient to ER post due to heavy bleeding. Given additional dose of cytotec. Seen in office and 200 cc old blood clots removed from vaginal and cervix with no active bleeding noted. Patient with continued clots with urination and then SOB and headache so went back to ER. Noted to have drop in H/H and transfusion started. Possible transfusion reaction with complaint of increase in SOB. Unit stopped. Still SOB and headache. Discussed with blood bank and will give a different unit with premedicate of motrin and benadryl. Discussed with patient. Also, plan to proceed with suction D&C for possible retained products. Reveiewed risks and patient agrees to proceed. Review of Systems Review of Systems: not repeated day of surgery; patient states no changes [facility] status [facility] Past Medical History Medical History (Updated 03/13/25 @ 08:56 by Frances Jones MD) (normal spontaneous vaginal delivery) Surgical History Surgical History (Updated 03/13/25 @ 08:58 by Frances Jones MD) History of elective Family History Family History Other No pertinent family history Social History Social History Smoking status: Never smoker Second hand tobacco smoke exposure: No Substance use: never Do You Feel Safe in your Home?: Yes Lack of Transportation: No Lack of Food: Never True Current Housing: I Have Housing Concerned About Future Housing: No Difficulty Paying Gas/Electric Bills: No Difficulty Paying for Meds: No Currently Unemployed: No Education: High School Diploma/GED Difficulty w/ Childcare or Family Care: No Spiritual care concerns: No Meds Home Medications and Allergies Home Medications ?Medication ?Instructions ?Recorded ?Confirmed ?Type valacyclovir 500 mg tablet 500 mg PO BID 04/27/24 03/13/25 History ferrous sulfate 27 mg iron tablet 27 mg PO BID 05/16/24 03/13/25 History ibuprofen 600 mg tablet 600 mg PO Q6H PRN pain #30 tabs 05/17/24 03/13/25 Rx Allergies Allergy/AdvReac Type Severity Reaction Status Date / Time No Known Allergies Allergy Verified 03/13/25 00:39 Vital Signs Vital Signs - 24 hr 03/13/25 00:36 03/13/25 02:41 03/13/25 03:04 Temperature 98.0 F 98.5 F Pulse Rate 89 81 93 Respiratory Rate 20 14 14 Blood Pressure 133/85 108/64 99/72 L Pulse Oximetry 100 99 100 Oxygen Delivery Room Air 03/13/25 03:17 03/13/25 03:40 03/13/25 03:41 Temperature 98.4 F Pulse Rate 91 82 Respiratory Rate 14 Blood Pressure 110/76 107/58 L Pulse Oximetry 100 79 L Oxygen Delivery 03/13/25 03:43 03/13/25 03:45 03/13/25 03:48 Temperature 99 F Pulse Rate 75 81 Respiratory Rate 18 Blood Pressure 107/58 L 108/59 L Pulse Oximetry 100 100 95 Oxygen Delivery 03/13/25 03:50 03/13/25 03:50 03/13/25 03:52 Temperature Pulse Rate Respiratory Rate Blood Pressure Pulse Oximetry 100 100 100 Oxygen Delivery 03/13/25 03:52 03/13/25 03:57 03/13/25 04:00 Temperature Pulse Rate 82 Respiratory Rate Blood Pressure 99/59 L Pulse Oximetry 93 100 Oxygen Delivery 03/13/25 04:01 03/13/25 04:02 03/13/25 04:05 Temperature Pulse Rate Respiratory Rate Blood Pressure Pulse Oximetry 100 100 Oxygen Delivery Room Air 03/13/25 04:15 03/13/25 04:16 03/13/25 04:20 Temperature Pulse Rate 82 Respiratory Rate Blood Pressure 108/61 Pulse Oximetry 98 100 Oxygen Delivery 03/13/25 04:20 03/13/25 04:25 03/13/25 04:26 Temperature 99.9 F H Pulse Rate 103 H Respiratory Rate 16 Blood Pressure 119/76 Pulse Oximetry 100 100 99 Oxygen Delivery 03/13/25 04:30 03/13/25 04:31 03/13/25 04:36 Temperature Pulse Rate 69 104 H Respiratory Rate Blood Pressure 109/83 119/76 Pulse Oximetry 100 100 Oxygen Delivery 03/13/25 04:41 03/13/25 04:46 03/13/25 04:47 Temperature Pulse Rate 97 Respiratory Rate Blood Pressure 109/60 Pulse Oximetry 100 100 Oxygen Delivery 03/13/25 04:51 03/13/25 05:00 03/13/25 05:15 Temperature Pulse Rate 94 101 H Respiratory Rate Blood Pressure 92/73 L 97/47 L Pulse Oximetry 100 Oxygen Delivery 03/13/25 05:15 03/13/25 05:22 03/13/25 05:27 Temperature 99 F Pulse Rate Respiratory Rate 16 Blood Pressure Pulse Oximetry 100 100 Oxygen Delivery 03/13/25 05:30 03/13/25 05:32 03/13/25 05:37 Temperature Pulse Rate 82 Respiratory Rate Blood Pressure 93/59 L Pulse Oximetry 100 100 Oxygen Delivery 03/13/25 05:42 03/13/25 05:45 03/13/25 05:47 Temperature Pulse Rate 88 Respiratory Rate Blood Pressure 92/53 L Pulse Oximetry 100 100 Oxygen Delivery 03/13/25 05:52 03/13/25 05:57 03/13/25 06:00 Temperature Pulse Rate 91 Respiratory Rate Blood Pressure 90/55 L Pulse Oximetry 100 100 Oxygen Delivery 03/13/25 06:02 03/13/25 06:07 03/13/25 06:12 Temperature Pulse Rate Respiratory Rate Blood Pressure Pulse Oximetry 100 100 100 Oxygen Delivery 03/13/25 06:17 03/13/25 06:22 03/13/25 06:27 Temperature Pulse Rate Respiratory Rate Blood Pressure Pulse Oximetry 100 100 100 Oxygen Delivery 03/13/25 06:32 03/13/25 06:37 03/13/25 06:42 Temperature Pulse Rate Respiratory Rate Blood Pressure Pulse Oximetry 100 100 100 Oxygen Delivery 03/13/25 06:45 03/13/25 06:47 03/13/25 06:48 Temperature Pulse Rate 104 H 103 H 94 Respiratory Rate Blood Pressure 86/57 L 77/40 L 98/57 L Pulse Oximetry 99 Oxygen Delivery 03/13/25 06:50 03/13/25 06:55 03/13/25 07:00 Temperature Pulse Rate 94 Respiratory Rate Blood Pressure 108/66 Pulse Oximetry 100 100 100 Oxygen Delivery 03/13/25 07:05 03/13/25 07:10 03/13/25 07:15 Temperature Pulse Rate 86 Respiratory Rate Blood Pressure 93/51 L Pulse Oximetry 100 100 100 Oxygen Delivery 03/13/25 07:20 03/13/25 07:25 03/13/25 07:30 Temperature Pulse Rate 83 Respiratory Rate Blood Pressure 92/46 L Pulse Oximetry 100 100 100 Oxygen Delivery 03/13/25 07:35 03/13/25 07:40 03/13/25 07:45 Temperature Pulse Rate 95 Respiratory Rate Blood Pressure 94/50 L Pulse Oximetry 99 100 Oxygen Delivery 03/13/25 08:00 03/13/25 08:01 03/13/25 08:33 Temperature Pulse Rate 95 90 106 H Respiratory Rate Blood Pressure 86/61 L 93/52 L 105/54 L Pulse Oximetry Oxygen Delivery Exam Const: General: comfortable and no acute distress Nutritional Appearance: average body habitus Resp: Effort & Inspection: normal respiratory effort GI: GI Palp: No abdominal tenderness : External Female Exam: normal external appearance Speculum Exam - Vagina: normal appearance of the vagina and vaginal bleeding (In Office last exam with 200 cc blood ) Speculum Exam - Cervix: Other cervical findings present (cervix flared but internal os closed) Bimanual exam- vagina & uterus: normal bimanual exam H&P: Results Labs Labs: Short CBC 03/13/25 Range/Units 01:02 WBC 6.0 (4.5-10.0) K/mm3 Hgb 7.6 L D (12.0-15.0) g/dL Hct 24.3 L (37.0-47.0) % Plt Count 236 (150-375) k/mm3 BMP 03/13/25 01:02 Sodium 137 Potassium 3.5 Chloride 106 Carbon Dioxide 20 L BUN 8 Creatinine 0.69 L Glucose 107 Calcium 8.2 L Assessment and Plan Assessment and plan (1) History of elective : Code(s): Z98.890 - Other specified postprocedural states Status: Acute Assessment and Plan: Possible retained products. Plan to proceed with D&C. (2) Symptomatic anemia: Code(s): D64.9 - Anemia, unspecified Status: Acute Assessment and Plan: plan to proceed with new unit of blood and premedicate with motrin and benadryl
[2025-03-13 09:12] LABS: Add Urine Microscopic? NO; Appearance Urine Clear (Clear); Bilirubin Urine Negative (Negative); Blood Urine Negative (Negative); Color Urine Yellow (Yellow); Glucose Urine UA Negative (Negative); Ketones Urine Negative (Negative); Leukocyte Esterase Ur Negative LEU/UL (Negative); Nitrate Urine Negative (Negative); Protein Urine Negative (Negative); Specific Grav Ur 1.009 (1.001-1.035); Urobilinogen Urine 0.2 mg/dL (<2.0)
[2025-03-13 09:14] LABS: TXRXN Occult Blood Urine 4 Hr Negative (Negative)
[2025-03-13 09:15] LABS: TXRXN RBC Urine 4 Hour 0-2 /hpf (0-2)
--- NOTE | 2025-03-13 09:17 | WPDHPUPDATE1 ---
History and Physical Update Update Date/Time: 03/13/25 09:17 History and Physical has been reviewed, including an updated exam of the patient. There are NO changes in the patient's condition. Risks, benefits, and alternatives have been discussed and questions answered. Patient agrees to proceed with procedure.
[2025-03-13 09:34] LABS: Hematocrit 23.9 % (37.0-47.0); Hemoglobin 7.6 g/dL (12.0-15.0)
[2025-03-13 09:48] LABS: Total Bilirubin 5hr Post TX RX 0.3 mg/dL (0.2-1.3)
[2025-03-13] MEDS: diphenhydrAMINE HCl INJ 50 MG/ML VIAL 25 MG IV PUSH (10:20)
--- NOTE | 2025-03-13 10:23 | PC.NURSE ---
Pt transported off unit to pre-op via stretcher.
--- NOTE | 2025-03-13 11:30 | WPDANESEPPF ---
Anes - Initial Pre Proc Eval Procedure: Operation Date: 03/13/25 11:45 Proposed Procedures p Suction Dilatation and Curettage - Frances Jones MD Date/Time: 03/13/25 11:30 Surgeon: Frances Jones MD Pre Op Diagnosis: vaginal bleeding s/p elective symptomatic Patient Data Age: 24 Gender: F Height: 1.68 m Weight: 54.5 kg Last Vital Signs Temp 37.2 C 03/13/25 10:11 Pulse 107 H 03/13/25 10:12 Resp 18 03/13/25 10:11 BP 104/51 L 03/13/25 10:12 Pulse Ox 100 03/13/25 10:15 O2 Del Method Room Air 03/13/25 04:01 Allergies Allergy/AdvReac Type Severity Reaction Status Date / Time No Known Allergies Allergy Verified 03/13/25 00:39 Home Medications ?Medication ?Instructions ?Recorded ?Confirmed ?Type valacyclovir 500 mg tablet 500 mg PO BID 04/27/24 03/13/25 History ferrous sulfate 27 mg iron tablet 27 mg PO BID 05/16/24 03/13/25 History ibuprofen 600 mg tablet 600 mg PO Q6H PRN pain #30 tabs 05/17/24 03/13/25 Rx Laboratory Tests 03/13/25 03/13/25 03/13/25 01:02 04:40 08:38 WBC 6.0 K/mm3 (4.5-10.0) RBC 2.53 L M/mm3 (4.2-5.4) Hgb 7.6 L D g/dL (12.0-15.0) Hct 24.3 L % (37.0-47.0) MCV 96.0 fl (80-100) MCH 30.0 pg (26-34) MCHC 31.3 L g/dl (32-36) RDW 12.5 % (11.5-14.5) Plt Count 236 k/mm3 (150-375) MPV 9.9 fl (7.4-10.4) Immature Gran % (Auto) 0.2 % (0-0.5) Neut % (Auto) 43.0 L % (45.5-73.1) Lymph % (Auto) 49.0 H % (18.3-44.2) [place] % (Auto) 6.0 % (2.6-8.5) Eos % (Auto) 1.3 % (0-4.4) Baso % (Auto) 0.5 % (0.2-1.2) Lymph # (Auto) 2.95 K/mm3 (0.9-3.2) [place] # (Auto) 0.4 K/mm3 (0.1-0.6) Eos # (Auto) 0.1 K/mm3 (0-0.3) Baso # (Auto) 0.0 K/mm3 (0.0-0.1) Abs Immat Gran (auto) 0.01 K/mm3 (0.00-0.031) Absolute Neuts (auto) 2.6 K/mm3 (1.3-6.7) Absolute Nucleated RBC 0.000 K/mm3 (0.0-0.012) Nucleated RBC % 0.0 % (0.0-0.2) PT 14.7 Seconds (11.1-14.7) INR 1.1 APTT 23.7 Seconds (22.3-36.8) Sodium 137 mmol/L (137-145) Potassium 3.5 mmol/L (3.4-5.0) Chloride 106 mmol/L (98-107) Carbon Dioxide 20 L mmol/L (22-30) Anion Gap 11 mmol/L (4-12) BUN 8 mg/dL (7-17) Creatinine 0.69 L mg/dL (0.7-1.0) Estim Creat Clear Calc 94 ml/min Estimated GFR > 60 (59 - ) Glucose 107 mg/dL (65-110) Calcium 8.2 L mg/dL (8.4-10.2) Post-Trans Total Bili 0.4 mg/dL (0.2-1.3) Beta HCG, Quant 888.88 mIU/ML Urine Color Yellow (Yellow) Urine Appearance Clear (Clear) Urine pH 7.0 (5.0-9.0) Ur Specific [place] 1.009 (1.001-1.035) Urine Protein Negative mg/dL (Negative) Urine Glucose (UA) Negative mg/dL (Negative) Urine Ketones Negative mg/dL (Negative) Ur Blood (Man) Negative (Negative) Ur Blood, Post-Transfus 3+ H Negative mg/dL (Negative) (Negative) Post-Trnsf Ur Hematuria >75 H /hpf 0-2 /hpf (0-2) (0-2) Urine Nitrate Negative (Negative) Urine Bilirubin Negative (Negative) Urine Urobilinogen 0.2 mg/dL (<2.0) Leukocyte Esterase Rfl Negative DANAY/UL (Negative) Blood Type A Positive A Positive Antibody Screen Negative Negative Crossmatch See Detail See Detail Pre-Trans Antibody Scrn Negative Post-Trans Antibody Scrn Negative 03/13/25 09:22 WBC RBC Hgb 7.6 L g/dL (12.0-15.0) Hct 23.9 L % (37.0-47.0) MCV MCH MCHC RDW Plt Count MPV Immature Gran % (Auto) Neut % (Auto) Lymph % (Auto) [place] % (Auto) Eos % (Auto) Baso % (Auto) Lymph # (Auto) [place] # (Auto) Eos # (Auto) Baso # (Auto) Abs Immat Gran (auto) Absolute Neuts (auto) Absolute Nucleated RBC Nucleated RBC % PT INR APTT Sodium Potassium Chloride Carbon Dioxide Anion Gap BUN Creatinine Estim Creat Clear Calc Estimated GFR Glucose Calcium Post-Trans Total Bili 0.3 mg/dL (0.2-1.3) Beta HCG, Quant Urine Color Urine Appearance Urine pH Ur Specific [place] Urine Protein Urine Glucose (UA) Urine Ketones Ur Blood (Man) Ur Blood, Post-Transfus Post-Trnsf Ur Hematuria Urine Nitrate Urine Bilirubin Urine Urobilinogen Leukocyte Esterase Rfl Blood Type Antibody Screen Crossmatch Pre-Trans Antibody Scrn Post-Trans Antibody Scrn Patient hx anesthesia problems: none Family hx anesthesia problems: none Results Review: All pre-operative results and documents have been reviewed as part of the pre-operative evaluation. COUNT INCLUDES THE [facility] Past Medical History Medical History (Updated 03/13/25 @ 08:56 by Frances Jones MD) (normal spontaneous vaginal delivery) Surgical History Surgical History (Updated 03/13/25 @ 08:58 by Frances Jones MD) History of elective Family History Family History Other No pertinent family history Social History Social History Smoking status: Never smoker Second hand tobacco smoke exposure: No Substance use: never Do You Feel Safe in your Home?: Yes Lack of Transportation: No Lack of Food: Never True Current Housing: I Have Housing Concerned About Future Housing: No Difficulty Paying Gas/Electric Bills: No Difficulty Paying for Meds: No Currently Unemployed: No Education: High School Diploma/GED Difficulty w/ Childcare or Family Care: No Spiritual care concerns: No Anes - Eval Final PreProcedure Day of Procedure 03/13/25 11:30 Patient weight: normal Heart: regular rate and rhythm Lungs: clear to auscultation and normal air movement Airway: Mallampati scale class II Neurological: alert and oriented Last oral intake: >/= 8 hours ASA classification: II Emergent: yes Anesthetic plan: proceed Anesthesia type and monitoring: general GIVS and standard monitoring Results Review: All pre-operative results and documents have been reviewed as part of the pre-operative evaluation. Informed Consent: The patient's anesthetic plan and its attendant risks and benefits were discussed with the patient/family/POA. Questions were solicited and answers provided to the satisfaction of the patient/family/POA.
[2025-03-13] MEDS: LIDOCAINE 1% LOCAL INJ 10 ML VIAL INFILTRATE (11:50)
[2025-03-13] MEDS: metroNIDAZOLE 500 MG/ISO 100ML 500 MG/100 ML BAG 100 MG IVPB (11:52)
--- NOTE | 2025-03-13 11:58 | W.PM.PROC2 ---
Procedure Note - Detailed Date of Procedure 03/13/25 Pre-op Diagnosis Status post medical with retained products and hemorrhage Post-op Diagnosis Same Procedure Performed suction D&C Surgeon Frances Jones MD Anesthesia MAC Findings vagina is full of clotted blood and possible products of conception with a very foul odor uterus sounds to 10cm minimal products of conception on curettings Description of Procedure The patient was taken to the operating room and placed under anesthesia in the dorsal lithotomy position. She was prepped and draped in usual sterile fashion. Tow[place] speculum is attempted to be placed but the vagina is full of old blood. The ring forceps used to remove the clots and blood. Due to the foul odor Flagyl 500 mg IV is ordered. The speculum was then placed. The cervix was grasped on the anterior lip with a tenaculum and the uterus sounded to 10cm. The cervix is dilated to approximately 1cm. The 8mm curved suction curette was used to evacuate the uterus. Minimal material was obtained on curettage. The sharp curette was used until a good uterine cry was noted in all areas. Minimal material was again obtained. One additional pass with the suction was taken. Minimal bleeding was encountered. All instruments are removed. Patient was taken to recovery in stable condition. Estimated Blood Loss 5 ( [id number] blood clot with possible tissue in the vagina the start of the case) Drains No Packing No Pathology Yes ( products of conception) Complications No immediate complications Condition Stable Disposition PACU
--- NOTE | 2025-03-14 12:18 | P.DS_ITS ---
DS: Admitting Diagnosis Discharge Date 03/13/25 Admitting Diagnosis post medical vaginal bleeding DS: Discharge Diagnosis Discharge Diagnosis (1) Retained products of conception following : Code(s): O03.4 - Incomplete spontaneous without complication Status: Acute Assessment and Plan: s/p D&C (2) Vaginal bleeding: Code(s): N93.9 - Abnormal uterine and vaginal bleeding, unspecified Status: Acute (3) Symptomatic anemia: Code(s): D64.9 - Anemia, unspecified Status: Acute Assessment and Plan: s/p transfusion DS: Summary Hospital Course Hospital Course: Admitted through ER for Blood and D&C due to likely retained products of conception post medical . Had c/o SOB and JIMÉNEZ that led to coming to ER. During first unit of blood, SOB noted and stopped and called transfusion reaction. Tolerated different unit with premedicating with benadryl and motrin. Underwent suction D&C and dc home after. Status at Discharge Functional status at discharge: independent ambulation Overall status at discharge: patient is progressing back to baseline Time Spent with Patient Time attestation: Total time spent providing and/or coordinating discharge services: DS: Data Data Completed and Pending Completed studies during hospitalization: Pending at discharge 03/13/25 11:54 Surgical [PTH] Routine Labs on day of discharge: Labs from last 24 hours 03/13/25 04:40 Crossmatch See Detail Discharge Plan Discharge Attending physician on discharge: Frances Jones Consulting providers: Vonda Thomas; Nabor Menendez; Violette Humphrey; Ed Han; Eddie Tate Discharging Clinician: Frances Jones Anticipated Discharge Date/Time: 03/13/25 13:01 Patient Disposition: Home Activity: may shower, may drive after 2 weeks and pelvic rest Diet: regular Discharge Instructions: OB ANTEPARTUM DISCHARGE INSTRUCTIONS This information is given to help you properly care for yourself at home after your discharge from the hospital. Follow these instructions until your doctor tells you otherwise. DIET: Eat Three Well Balanced Meals per Day Drink at Least Eight 8-Ounce Glasses of Caffeine-Free Beverages Daily ACTIVITY: As Tolerated RETURN TO LABOR AND DELIVERY IF YOU HAVE: Vaginal Bleeding Valuables released to patient or family? N/A Medications from home returned to patient? N/A I Acknowledge Receipt of and Understand the Above Instructions IF YOU HAVE ANY QUESTIONS REGARDING THESE INSTRUCTIONS, PLEASE CALL [phone]. IF PROBLEMS ARISE, CALL YOUR PROVIDER. IF EMERGENCY CARE IS NEEDED, [facility]S EMERGENCY ROOM IS AVAILABLE 24 HOURS A DAY. Patient Instructions: Antibiotic Form Patient Language: Indonesian Stand Alone Forms: General Discharge Information, Work/School Release IP Follow-up/Referrals: Frances Jones MD [Physician] - 1 Week Discharge Medications: Continued valacyclovir 500 mg tablet 500 mg PO BID ferrous sulfate 27 mg iron Tablet 27 mg PO BID ibuprofen 600 mg tablet 600 mg PO Q6H PRN (Reason: pain) Qty: 30 0RF Date of admission: 03/13/25 02:33 Primary Care Provider: PHYSICIAN,PIN DRAFTING MACHINE OPERATOR Admitting Provider: Frances Jones Attending physician on admission: Frances Jones Condition: Stable
== END 2025-03-13 13:38 | disposition home or self-care (01) ==
LOC: ANHED 02:48 → ANHOBPP 03:16
PROVIDERS: Obstetrics & Gynecology; Admitting Provider Obstetrics & Gynecology Gynecology; Emergency Provider Physician Assistant; Visit Provider Obstetrics & Gynecology Gynecology
PROC: (CPT 59812; principal; 2025-03-13 11:45)
DX: O07.1 Delayed or excessive hemorrhage following failed attempted termination of pregnancy (principal); D64.9 Anemia, unspecified; G43.909 Migraine, unspecified, not intractable, without status migrainosus; Z79.899 Other long term (current) drug therapy
CPT/HCPCS: 59812; 36415; 36430; 71046; 80048; 81001; 81003; 82247; 84702; 85014; 85018; 85025; 85610; 85730; 86850; 86880; 86900; 86901; 86923; 88305; 93005; 96374; 96375; 96376; 99285; A9270; G0378; G0379; J1200; J1836; J2003; J2250; J2704; J7030; J7050; P9016

== ENCOUNTER 2025-03-14 19:27 | Emergency (ER) | payer OTHER, SELFPAY ==
--- OUTSIDE RECORDS SUMMARY | 2025-03-14 19:29 | XMS_ITS | Data Portability ---
[facility] [address] [place] [address] Care Team Providers Care Resident Inspector Name Role Phone CONCEPCION SILVA Primary Care [...] Time Body mass index 20-24 - normal [id number] Active 024 Natan Morrow MA null, [facility] 4 10:16:53 state 62232256 Active 024 SCOTTY Harmon Attn: Erika ruth,[address] [place], [address], [facility] 4 10:40:16 Problem Notes None recorded. Medical [...] and Address Organization Details Last Updated DateTime 76021.7 9 g 20.4 kg/m2 167.64 cm 18 /min 99 % 99 % 88 /min 126 mm[Hg] 82 mm[Hg] Natan Morrow MA HI - [facility] 10:20:57 Date Recorded Systolic blood pressure Diastolic blood pressure Provider Name and Address Organization Details Last Updated DateTime 10/03/2024 122 mm[Hg] 82 mm[Hg] SCOTTY Harmon Attn: Accounting,[address] [place], [address], [facility] 10/03/2024 10:32:56 Social History Question Answer Notes LastModified by Organizat ion Details LastModified Time Tobacco Smoking Status Never Smoker Natan Morrow MA null, [facility] 10/03/2024 10:18:22 Do You Have An [...] Anxious, Or Unable To Sleep At Night)? [id number] Information not available 10/03/2024 Do You Use [...] SNOMED-CT Code Diagnosis ICD10 Code Diagnosis Note [id number] Fuentes Burns MD [facility] - [place] Chua [address] [place] [address] 10/03/2024 10:07:03 10/03/2024 10:50:27 Adult health examination [id number] Z00.00 new pt wellness completed. labs declined because she just had them all during Body mass index 20-24 - normal [id number] Z68.20 BMI is 20.4 state 6532336 1 Z39.2 Patient is doing very well with no acute concerns. No anxiety or depression . Her baby is sleeping through the night and very easy so far and he is eating well. Change in stool consistency [id number] R19.5 Patient has just had some harder [...] Craig Member ID Guarantor Name 10/03/2024 1 [employer] - OPEN ACCESS [id number] Mac Bowman [id number] PILY Bowman Notes Date Note Type Note Provider Name and Address Organization Details Recorded Time 10/03/2024 text/html 5 months post ; doing well. no c/o anxiety or depression. feeling good, sleep well. Dr. Jones is OB/gyne SCOTTY Harmon Attn: Accounting,[address] [place], [address], [facility] 10/03/2024 10:41:29 OBGyn Episode No OBEpisode recorded.
--- OUTSIDE RECORDS SUMMARY | 2025-03-14 19:29 | XMS_ITS | Referral Summary ---
Author Organization [address] Address [address] [place] [phone] Care Team Providers Care Tectonophysicist Name Role Phone Unknown, Notinfile Primary Care [...] Plan of Treatment Not on file Insurance [facility] [id number] Care Teams Tectonophysicist Relationship Specialty Start Date End Date Unknown, Notinfile PCP - General 08/01/24
--- OUTSIDE RECORDS SUMMARY | 2025-03-14 19:29 | XMS_ITS | Clinical Summary ---
Author Organization [address] Address [address] [place] [id number] Care Team Providers Care Mechanical Equipment Test Engineer Name Role Phone Unknown, Notinfile Primary Care [...] 0 03/12/2007, 03/12/2007, Additional history exists Insurance [facility] [id number] Care Teams Mechanical Equipment Test Engineer Relationship Specialty Start Date End Date Unknown, Notinfile PCP - General 08/01/24
--- OUTSIDE RECORDS SUMMARY | 2025-03-14 19:29 | XMS_ITS | Clinical Summary ---
[facility] Organization [facility] Address [address] [place] [address] Care Team Providers Care Lace Sewer Name Role Phone Unavailable Primary Care Provider [...] AM CDT Pulse 103 12/22/2023 11:20 AM [facility] Temperature 36.7 C (98.1 F) 12/22/2023 11:20 AM [facility] Respiratory Rate 18 12/22/2023 11:20 AM [facility] Oxygen Saturation 99% 12/22/2023 11:20 AM [facility] Inhaled Oxygen Concentration - - Weight 64.1 [...] Comments GC/CHLAMYDIA, UROGENITAL Routine 09/22/2023 10:16 AM [facility] Screening for STD (sexually transmitted disease) CERV/VAG CYTO AGE BASED SCREEN PAP Routine 09/22/2023 10:16 AM [facility] Screening for cervical cancer from Last 3 Months or Most Recently Relevant to Health Maintenance Results * GC/CHLAMYDIA, UROGENITAL (09/22/2023 10:16 AM [facility]) C TRAC RNA NOT DETECTED NOT DETECTED [facility] N.GONORRHOEAE RNA, TMA NOT DETECTED NOT DETECTED [facility] COMMENT INFECTIOUS DISEASE [facility] Comment: The analytical performance characteristics of this assay, when used to test SurePath(TM) specimens have been determined by [facility]. The modifications have not been cleared or approved by the FDA. This assay has been validated pursuant to the CLIA regulations and is used for clinical purposes. For additional information, please refer to https://education.Admify/faq/NDZ256 (This link is being provided for information/ educational purposes only.) Test Performed at: [facility] [address] [place] [address] Breezy Andersen MD Genital SPECIMEN FROM VAGINA / Unknown 09/22/2023 10:16 AM [facility] 09/23/2023 8:35 AM [facility] Pat Choi PRESENTATION DESIGNER MICROBIOLOGY - GENERAL ORDERABLE S Final Result [facility] [phone] [facility] [address] [place] [address] * CERV/VAG CYTO AGE BASED SCREEN PAP (09/22/2023 10:16 AM [facility]) COMMENT (PAP): [facility] Comment: This order for age-based cervical cancer and STI screening follows ACOG guidelines(PB 168, 140, CPN419). See individual assays for performing site location. CLINICAL INFORMATION [facility] Comment:SCREENING HEALTHY LAST MENSTRUAL PERIOD [facility] Comment:NONE GIVEN PREV PAP: [facility] Comment:NONE GIVEN PREV BX: [facility] [place] Comment:NONE GIVEN SOURCE [facility] Comment:Endocervix ADEQUACY: [facility] [place] Comment: Satisfactory for evaluation. Endocervical/transformation zone component present. Age and/or menstrual status not provided PAP INTERP [facility] Comment: Cytology Results: Negative for intraepithelial lesion or malignancy. CYTOLOGY INFECTION [facility] [place] Comment: Shift in vaginal rabia suggestive of bacterial vaginosis. COMMENT (PAP TEST) [facility] Comment: This Pap test has been evaluated with computer assisted technology. DIRECTOR REACTOR PROJECTS: [facility] Comment: GAZ, CT(ASCP) CT screening location: [place] [address] [facility], [address], [place] [address] EXPLANATORY NOTE [facility] [place] Comment: EXPLANATORY NOTE: The Pap is a [...] C TRAC RNA NOT DETECTED NOT DETECTED [facility] N.GONORRHOEAE RNA, TMA NOT DETECTED NOT DETECTED [facility] COMMENT INFECTIOUS DISEASE [facility] Comment: The analytical performance characteristics of this assay, when used to test SurePath(TM) specimens have been determined by [facility]. The modifications have not been cleared or approved by the FDA. This assay has been validated pursuant to the CLIA regulations and is used for clinical purposes. For additional information, please refer to https://education.Admify/faq/ITP080 (This link is being provided for information/ educational purposes only.) Test Performed at: [facility] [address] [place] [id number] Breezy Andersen MD TX2 Genital SWAB OF ENDOCERVIX / Unknown 09/22/2023 10:16 AM [facility] 09/23/2023 6:22 AM [facility] Pat MORGAN PATHOLOGY/CYTOLOGY ORDERABLES Fi nal Result [facility] [phone] [facility] [address] [place] [id number] from Last 3 Months or Most Recently Relevant to Health Maintenance Insurance [facility] [id number] GENERIC PAYOR [employer] PPO
--- OUTSIDE RECORDS SUMMARY | 2025-03-14 19:29 | XMS_ITS | Clinical Summary ---
Author Organization [facility] Address [address] [place] [address] Care Team Providers Care Malt House Operator Name Role Phone Barbra Clemente MD Primary Care Provider [phone] Allergies No known active allergies Medications ASHLYNA [...] patient's age to complete this topic Insurance [employer] OPEN ACCESS [facility] [employer] OPEN ACCESS [facility] [employer] OPEN ACCESS [facility] [employer] OPEN ACCESS [facility] Care Teams Malt House Operator Relationship Specialty [place] [address] [facility] [address] [place] [address] PCP - General INTERNAL MEDICINE 02/02/25
[2025-03-14 19:33] VITALS: BP 118/75; PULSE 79; RESP 17; TEMP 36.9; O2SAT 100
--- NOTE | 2025-03-14 19:33 | ED_ITS ---
HPI - General Adult General Chief complaint: Unspecified Stated complaint: Blood Pressure Time Seen by Provider: 03/14/25 19:33 Source: patient, RN notes reviewed and old records reviewed Mode of arrival: ambulatory Limitations: no limitations History of Present Illness HPI narrative: 24-year-old female presents to the [facility] requesting to have her blood pressure checked. Patient had an elective DNC yesterday. Had a blood transfusion due to low H&H. Patient reports that she did have a chemical about a week or 10 days ago. Did seek treatment in the ER for bleeding. Patient reports that she started with a severe headache, chest pain and shortness of breath last night. Has taken ibuprofen. Onset (ago): day(s) (1) Related Data Home Medications ?Medication ?Instructions ?Recorded ?Confirmed ?Last Taken ?Type ferrous sulfate 27 mg iron tablet 27 mg PO BID 05/16/24 03/14/25 03/12/25 History metronidazole 500 mg tablet mg 03/14/25 Unknown History Allergies Allergy/AdvReac Type Severity Reaction Status Date / Time No Known Allergies Allergy Verified 03/14/25 19:28 Review of Systems Review of Systems: All systems reviewed & are unremarkable except as noted in HPI and below Constitutional: Constitutional: Reports as per HPI and Reports headache(s) ENT: Reports system reviewed and no additional complaints, except as documented Cardiovascular: Cardiovascular: Reports as per HPI, Reports chest pain and Reports dyspnea Respiratory: Respiratory: Reports as per HPI, Reports no additional respiratory complaints, Denies chest congestion, Denies cough and Reports dyspnea Musculoskeletal: Musculoskeletal: Reports no additional musculoskeletal complaints Integumentary/Breasts: Skin/Breast: Reports system reviewed and no additional complaints, except as docu PMFSH Past Medical History Medical History (Updated 03/14/25 @ 20:11 by Rosie Bustillo APRN) Blood transfusion reaction 03/13/25 (normal spontaneous vaginal delivery) Surgical History Surgical History History of elective Family History Family History Other No pertinent family history Social History Social History Smoking status: Never smoker Second hand tobacco smoke exposure: No Substance use: never Do You Feel Safe in your Home?: Yes Lack of Transportation: No Lack of Food: Never True Current Housing: I Have Housing Concerned About Future Housing: No Difficulty Paying Gas/Electric Bills: No Difficulty Paying for Meds: No Currently Unemployed: No Education: Bachelor's Degree Difficulty w/ Childcare or Family Care: No Spiritual care concerns: No Comments At the time of my signature, I reviewed and agree with the nursing past medical, surgical, social, and family history. There is no relevant family history pertinent to the patient complaint. Exam Const: General: cooperative, healthy appearing, comfortable, no acute distress, well developed, alert and well nourished Nutritional Appearance: well nourished Orientation/consciousness: patient oriented x3 Limitations: no limitations HENMT: Head: normal to inspection Eyes: General: appearance normal, both eyes and all related structures Alignment and Position: alignment normal Neck: Neck: normal visual inspection, full ROM, no lymphadenopathy and no meningeal signs Chest: Chest palpation & inspection: normal inspection of the chest Resp: Effort & Inspection: normal respiratory effort and able to speak in complete sentences Auscultation: clear to auscultation bilaterally, no crackles, no rales, no rhonchi and no wheezes Cardio: Rate: regular rate Skin: General skin exam: normal color and no rashes or lesions noted Neuro: General: patient oriented x3, gait normal, moves all extremities and no meningeal signs Cognition (Neuro): normal cognition Speech: normal speech Gait exam (Neuro): Normal gait present Extrem: General: normal to inspection, full ROM, capillary refill normal and normal gait Psych: Appearance: grossly normal and well kempt Mental Status: mental status grossly normal Speech and movement: Normal speech and movement present and Clear speech present Affect: normal affect Attitude: cooperative Course Course Level of Care: Express Care Visit Vital Signs Vital signs: Vital Signs Temperature 98.5 F 03/14/25 19:33 Pulse Rate 79 03/14/25 19:33 Respiratory Rate 17 03/14/25 19:33 Blood Pressure 118/75 03/14/25 19:33 Pulse Oximetry 100 03/14/25 19:33 Oxygen Delivery Room Air 03/14/25 19:33 Temperature 98.5 F 03/14/25 19:33 Pulse Rate 79 03/14/25 19:33 Respiratory Rate 17 03/14/25 19:33 Blood Pressure 118/75 03/14/25 19:33 Pulse Oximetry 100 03/14/25 19:33 Oxygen Delivery Room Air 03/14/25 19:33 Reviewed Medical Decision Making MDM Narrative Medical decision making narrative: Patient sitting in exam room. Patient is nontoxic in appearance, vitals are stable. Patient presents requesting to have blood pressure checked, states that she had a procedure yesterday and a blood transfusion. Reports a reaction to blood transfusion. Patient states that she started to have a headache, chest pain and shortness of breath last night. Has taken ibuprofen with no relief EKG done in clinic, discussed transferring to the ER. Patient is wanting to talk to her mom 1st. States that she really just wanted her blood pressure checked Discussed reactions to blood transfusion, anesthesia, concerns for the chest pain shortness of breath due to the blood transfusion. Patient talking with mom on cell phone All questions have been answered, and the patient deny any further questions at this time. Reports again she will discussed with her Mom whether she will go to the ER not. Some parts of this dictation were generated by voice recognition software and may contain typographical and/or grammatical inaccuracies. Differential Diagnosis Differential Diagnosis: Atypical chest pain, shortness of breath, blood transfusion reaction, PE, anesthesia reaction Medical Records Medical records reviewed: Yes I reviewed the external patient's medical records. Vital Signs Vital Signs: Vital Signs Temperature 98.5 F 03/14/25 19:33 Pulse Rate 79 03/14/25 19:33 Respiratory Rate 17 03/14/25 19:33 Blood Pressure 118/75 03/14/25 19:33 Pulse Oximetry 100 03/14/25 19:33 Oxygen Delivery Room Air 03/14/25 19:33 Temperature 98.5 F 03/14/25 19:33 Pulse Rate 79 03/14/25 19:33 Respiratory Rate 17 03/14/25 19:33 Blood Pressure 118/75 03/14/25 19:33 Pulse Oximetry 100 03/14/25 19:33 Oxygen Delivery Room Air 03/14/25 19:33 Reviewed Lab Data Lab results reviewed: Yes I reviewed the patient's lab results. Labs: Reviewed ECG Data EKG #1: Attestation: I personally reviewed and interpreted this ECG as follows: ECG completion date: 03/14/25 ECG completion time: 19:45 Interpretation: Sinus rhythm with sinus arrhythmia with short VA interval Borderline EKG, ventricular rate 75, VA interval 118, QRS duration [address] elevation or depression noted Critical Care Time Critical Care Time Critical Care Time: No Discharge Plan Discharge Clinical Impression: Shortness of breath, History of blood transfusion Chest pain Qualifiers: Chest pain type: unspecified Qualified Code(s): R07.9 - Chest pain, unspecified Headache Qualifiers: Headache type: unspecified Headache chronicity pattern: acute headache Patient Disposition: Elopement After Seen by Prov Patient Language: Iraqi Prescriptions: No Action metronidazole 500 mg tablet ferrous sulfate 27 mg iron Tablet 27 mg PO BID ibuprofen 600 mg tablet 600 mg PO Q6H PRN (Reason: pain) Qty: 30 0RF Follow-up/Referrals: PHYSICIAN,COMMUNICATIONS EDITOR [Primary Care Provider] -
--- NOTE | 2025-03-14 19:43 | ECG_ITS ---
Test Date: 2025-03-14 19:45:17 Measurements Intervals [place] Rate: 75 P: 68 WA: 118 QRS: 81 QRSD: 118 T: 59 QT: 341 QTc: 381 Interpretive Statements BASELINE ARTIFACT SINUS RHYTHM WITHIN NORMAL LIMITS Compared to ECG 03/13/2025 02:15:39 NO SIGNIFICANT CHANGE Electronically Signed On 03-15-2025 07:19:03 CDT by Fuentes Lo M.D.
== END 2025-03-14 19:43 | disposition left against medical advice (07) ==
PROVIDERS: Emergency Provider Nurse Practitioner
DX: R06.02 Shortness of breath (principal); R07.9 Chest pain, unspecified; R51.9 Headache, unspecified; Z92.89 Personal history of other medical treatment
CPT/HCPCS: 93005; 99213; G0463

== ENCOUNTER 2025-03-16 10:38 | Outpatient (CLI) | payer OTHER, SELFPAY ==
--- NOTE | ~2025-03-16 | XR_ITS ---
Clinical Indication: Shortness of breath PA and lateral views of the chest: Comparison: 03/13/2025 Findings: The lungs are clear, without evidence of focal consolidation or pleural effusion. Cardiome diastinal silhouette is within normal limits. Bones and soft tissues are unremarkable. Impression: Normal chest. Reviewed, dictated and finalized at location . Impression: Normal chest.
== END 2025-03-16 10:39 | disposition home or self-care (01) ==
PROVIDERS: PCP Obstetrics & Gynecology Gynecology; Visit Provider Obstetrics & Gynecology Gynecology
DX: R06.02 Shortness of breath (principal)
CPT/HCPCS: 71046

== ENCOUNTER 2025-05-29 20:36 | Emergency (ER) | payer OTHER, SELFPAY ==
--- NOTE | ~2025-05-29 | XR_ITS ---
EXAMINATION: XR chest 2V Exam Date/Time: 05/29/2025 21:00 CDT HISTORY: chest pain Comparison: 03/16/2025. RESULT: Lines, tubes, and devices: None. Lungs and pleura: Clear. Cardiomediastinal silhouette: Stable. Other: No acute osseous or upper abdominal finding. IMPRESSION: No acute cardiopulmonary process. Reviewed, dictated and finalized at location K.
[2025-05-29 20:37] VITALS: BP 131/77; PULSE 94; RESP 18; TEMP 36.8; O2SAT 100
--- OUTSIDE RECORDS SUMMARY | 2025-05-29 20:39 | XMS_ITS | Clinical Summary ---
Author Organization [address] Address [address] [place] [address] Care Team Providers Care Foundry Patternmaker Name Role Phone Unknown, Notinfile Primary Care [...] 10:33 AM CDT Height 167.6 cm (5' 6) 08/01/2024 10:33 AM CDT Body Mass Index [...] 5 season) 2024 03/23/2021, 02/26/2021 Influenza Vaccine (Season Ended) 2025 Hepatitis B Screening Completed 12/12/2002 , 05/02/2002, 02/28/2002 Pneumococcal vaccine <65 Completed 003, 09/12/2002, 07/04/2002, Additional history exists Varicella Vaccines Completed 05/16/2016, 0 03/12/2007, 03/12/2007, Additional history exists Insurance [facility] [id number] Care Teams Foundry Patternmaker Relationship Specialty Start Date End Date Unknown, Notinfile PCP - General 08/01/24
--- OUTSIDE RECORDS SUMMARY | 2025-05-29 20:39 | XMS_ITS | Data Portability ---
Author Organization [facility] Address [address] [place] [address] Care Team Providers Care Briquetting Machine Operator Name Role Phone CONCEPCION SILVA Primary Care [...] Time Body mass index 20-24 - normal [id number] Active 024 Natan Morrow MA [facility], [facility] 4 10:16:53 state [id number] Active 024 SCOTTY Harmon Attn: Erika ruth,[address] [facility], [place], [address] [place] [address] 4 10:40:16 Problem Notes None recorded. Medical [...] Available No t Available Vitals Date Recorded Systolic And Diastolic Provider Name and Address Organization Details Last Updated DateTime 10/03/2024 122/82 mm[Hg] SCOTTY Harmon Attn: Accounting,[address] [facility], [place], [address], [place] - [facility] 10/03/2024 10:32:56 Date Recorded Body weight Body mass index (BMI) Body height Respiratory rate Oxygen saturation Oxygen saturation in Arterial blood by Pulse oximetry Heart rate Systolic And Diastolic Provider Name and Address Organization Details Last Updated DateTime 66453.7 9 g 20.4 kg/m2 167.64 cm 18 /min 99 % 99 % 88 /min 126/82 mm[Hg] Natan Morrow MA [place] - [facility] 10:20:57 Social History Question Answer Notes LastModified by Organizat ion Details LastModified Time Tobacco Smoking Status Never Smoker Natan Morrow MA null, [place] [facility] 10/03/2024 10:18:22 Do You Have An Advance Directive? No Information n ot available 10/03/2024 Are You Blind Or Do [...] No Information not available 10/03/2024 Are You Deaf [...] Yes Information not available 10/03/2024 Do You Use Sunscreen Routinely? No Information not available 10/03/2024 Has Tobacco Cessation Counseling Been Provided? No Information not available 10/03/2024 Sex: Unknown Functional Status Question Answer Note LastModified by Organizat ion Details LastModified Time Do you use any illicit or recreational drugs? No Information not available 10/03/2024 Do you or have you ever used any other forms of tobacco or nicotine? No Information not available 10/03/2024 What is your level of alcohol consumption? Moderate Information not available 10/03/2024 Are you currently employed? Yes Information not available 10/03/2024 Are you able to care for yourself? Yes Information n ot available 10/03/2024 What is your exercise level? Occasional Information not available 10/03/2024 Mental Status Question Answer Note LastModified by Organization D etails LastModified Time Do you feel stressed (tense, restless, nervous, or anxious, or unable to sleep at night)? [id number] Information not available 10/03/2024 Family History Nothing Reported. Medical History No [...] 10:18:43 pneumococcal conjugate PCV 7 2 completed STACY Wilson, [facility] - [facility] 10/03/2024 10:18:43 varicella 3 completed [...] SNOMED-CT Code Diagnosis ICD10 Code Diagnosis Note [id number] Fuentes Burns MD [facility] [place] [address] [place] [address] 10/03/2024 10:07:03 10/03/2024 10:50:27 Adult health examination [id number] Z00.00 new pt wellness completed. labs declined because she just had them all during Body mass index 20-24 - normal 020983342 Z68.20 BMI is 20.4 state 2657775 1 Z39.2 Patient is doing very well with no acute concerns. No anxiety or depression . Her baby is sleeping through the night and very easy so far and he is eating well. Change in stool consistency [id number] R19.5 Patient has just had some harder [...] None Recorded Advance Directives Directive N: Payers Insurance Date Sequence Insurance Name Policy Number Policy Craig Covered Member ID Craig Member ID Guarantor Name 10/03/2024 1 [employer] - OPEN ACCESS [id number] [facility] [id number] OI [id number] SOI Bowman 10/03/2024 1 [employer] - [facility] Bowman [id number] OI Bowman Notes Date Note Type Note Provider Name and Address Organization Details Recorded Time 10/03/2024 text/html 5 months post ; doing well. no c/o anxiety or depression. feeling good, sleep well. Dr. Jones is OB/gyne SCOTTY Harmon Attn: Accounting,[address] [place], [address], [facility] - [place] 10/03/2024 10:41:29 OBGyn Episode No OBEpisode recorded.
--- OUTSIDE RECORDS SUMMARY | 2025-05-29 20:40 | XMS_ITS | Clinical Summary ---
[facility] Organization [facility] Address [address] [place] [address] Care Team Providers Care Bias Machine Operator Name Role Phone Unavailable Primary Care [...] Encounters Date Type Department Care Team Description 04/04/2025 External Device Data STL ABSTRACTION Provider, Abstract 03/30/2025 External Device Data STL ABSTRACTION Provider, Abstract 03/29/2025 External Device Data STL ABSTRACTION Provider, Abstract 03/28/2025 External Device Data STL ABSTRACTION Provider, Abstract [...] AM CDT Pulse 103 12/22/2023 11:20 AM DISPLAY FABRICATION SUPERVISOR Temperature 36.7 C (98.1 F) 12/22/2023 11:20 AM DISPLAY FABRICATION SUPERVISOR Respiratory Rate 18 12/22/2023 11:20 AM DISPLAY FABRICATION SUPERVISOR Oxygen Saturation 99% 12/22/2023 11:20 AM DISPLAY FABRICATION SUPERVISOR Inhaled Oxygen Concentration - - Weight 64.1 kg (141 lb 6.4 oz) 02/02/2024 10:06 AM CDT Height 167.6 cm (5' 6) 02/02/2024 10:06 AM CDT Body Mass Index 22.82 02/02/2024 10:06 AM CDT Plan of Treatment Health Maintenance Due Date Last Done Comments DTAP/TDAP/TD VACCINES (5 - Tdap) 2012 03/12/2007, 03/12/2007, 03/12/2007, Additional history exists HPV VACCINES (1 - 3-dose series) 2016 HPV/Cotest (21-29) 2022 CHLAMYDIA SCREENING (ANNUAL) 11-24 YEARS 09/22/2024 09/22/2023, 05/29/2021 INFLUENZA VACCINE (#1) 2025 CERVICAL CANCER SCREENING 09/22/2026 PAP SMEAR 09/22/2026 09/22/2023 HEPATITIS B VACCINES Completed 12/12/2002, 05/02/2002, 02/28/2002 Procedures Procedure Name Priority Date/Time Associated Diagnosis Comments GC/CHLAMYDIA, UROGENITAL Routine 09/22/2023 10:16 AM DISPLAY FABRICATION SUPERVISOR Screening for STD (sexually transmitted disease) CERV/VAG CYTO AGE BASED SCREEN PAP Routine 09/22/2023 10:16 AM DISPLAY FABRICATION SUPERVISOR Screening for cervical cancer from Last 3 Months or Most Recently Relevant to Health Maintenance Results * GC/CHLAMYDIA, UROGENITAL (09/22/2023 10:16 AM DISPLAY FABRICATION SUPERVISOR) C TRAC RNA NOT DETECTED NOT DETECTED [facility] [place] N.GONORRHOEAE RNA, TMA NOT DETECTED NOT DETECTED [facility] [place] COMMENT INFECTIOUS DISEASE [facility] [place] Comment: The analytical performance characteristics of this assay, when used to test SurePath(TM) specimens have been determined by [facility] [place]. The modifications have not been cleared or approved by the FDA. This assay has been validated pursuant to the CLIA regulations and is used for clinical purposes. For additional information, please refer to https://education.Pogoapp/faq/FVD361 (This link is being provided for information/ educational purposes only.) Test Performed at: [facility] [address] [place] [address] Breezy Andersen MD Genital SPECIMEN FROM VAGINA / Unknown 09/22/2023 10:16 AM DISPLAY FABRICATION SUPERVISOR 09/23/2023 8:35 AM DISPLAY FABRICATION SUPERVISOR Pat Choi DERRICK FOLLOWER MICROBIOLOGY - GENERAL ORDERABLE S Final Result [facility] [phone] [facility] [id number] [place] [address] * CERV/VAG CYTO AGE BASED SCREEN PAP (09/22/2023 10:16 AM DISPLAY FABRICATION SUPERVISOR) COMMENT (PAP): [facility] [place] [place] Comment: This order for age-based cervical cancer and STI screening follows ACOG guidelines(PB 168, 140, NQY302). See individual assays for performing site location. CLINICAL INFORMATION [facility] [place] [place] Comment:SCREENING HEALTHY LAST MENSTRUAL PERIOD [email or web address] [place] Comment:NONE GIVEN PREV PAP: [facility] [place] [place] Comment:NONE GIVEN PREV BX: [facility] [place] Comment:NONE GIVEN SOURCE [facility] [place] Comment:Endocervix ADEQUACY: [facility] [place] [place] Comment: Satisfactory for evaluation. Endocervical/transformation zone component present. Age and/or menstrual status not provided PAP INTERP [facility] [place] [place] Comment: Cytology Results: Negative for intraepithelial lesion or malignancy. CYTOLOGY INFECTION [facility] [place] Comment: Shift in vaginal rabia suggestive of bacterial vaginosis. COMMENT (PAP TEST) [facility] [place] Comment: This Pap test has been evaluated with computer assisted technology. ORGAN RECOVERY COORDINATOR: [facility] [place] Comment: GWENDOLYN HINES(ASCP) CT screening location: [address], [address], [place] [address] [facility] [place] Comment: EXPLANATORY NOTE: The Pap is a [...] C TRAC RNA NOT DETECTED NOT DETECTED [facility] [place] [place] N.GONORRHOEAE RNA, TMA NOT DETECTED NOT DETECTED [facility] [place] [place] COMMENT INFECTIOUS DISEASE [facility] [place] [place] Comment: The analytical performance characteristics of this assay, when used to test SurePath(TM) specimens have been determined by [facility] [place]. The modifications have not been cleared or approved by the FDA. This assay has been validated pursuant to the CLIA regulations and is used for clinical purposes. For additional information, please refer to https://education.Pogoapp/faq/QRC719 (This link is being provided for information/ educational purposes only.) Test Performed at: [facility] [place] [address] [address] [place] [address] Breezy Andersen MD TX2 Genital SWAB OF ENDOCERVIX / Unknown 09/22/2023 10:16 AM DISPLAY FABRICATION SUPERVISOR 09/23/2023 6:22 AM DISPLAY FABRICATION SUPERVISOR Pat Choi DERRICK FOLLOWER PATHOLOGY/CYTOLOGY ORDERABLES nal Result [facility] [phone] [facility] [place] [address] [address] [place] [address] from Last 3 Months or Most Recently Relevant to Health Maintenance Insurance [employer] PPO
--- OUTSIDE RECORDS SUMMARY | 2025-05-29 20:40 | XMS_ITS | Clinical Summary ---
Author Organization [facility] Address [address] [place] [address] Care Team Providers Care Bag Loader Name Role Phone Barbra Clemente MD Primary Care Provider [phone] Allergies No known active allergies Medications ASHLYNA [...] 8:56 AM CDT Height 167.6 cm (5' 6) 03/08/2021 8:56 AM CDT Body Mass Index [...] patient's age to complete this topic Insurance [email or web address] OPEN ACCESS [facility] [email or web address] OPEN ACCESS [facility] [email or web address] OPEN ACCESS [facility] [email or web address] OPEN [facility] Care Teams Bag Loader Relationship Specialty [place] [address] [facility] [address] [place] [id number] PCP - General INTERNAL MEDICINE 02/02/25
--- OUTSIDE RECORDS SUMMARY | 2025-05-29 20:40 | XMS_ITS | Referral Summary ---
Author Organization [address] Address [address] [place] [address] Care Team Providers Care Truck Driver Name Role Phone Unknown, Notinfile Primary Care [...] Plan of Treatment Not on file Insurance [facility] [id number] Care Teams Truck Driver Relationship Specialty Start Date End Date Unknown, Notinfile PCP - General 08/01/24
--- NOTE | 2025-05-29 20:41 | ECG_ITS ---
Test Date: 2025-05-29 20:46:44 Measurements Intervals [place] Rate: 87 P: 75 AK: 123 QRS: 78 QRSD: 90 T: 63 QT: 346 QTc: 417 Interpretive Statements SINUS RHYTHM Compared to ECG 03/14/2025 19:45:17 No significant changes Electronically Signed On 05-30-2025 16:38:23 CDT by Nat Shore M.D.
[2025-05-29 20:59] LABS: Hematocrit 36.2 % (37.0-47.0); Hemoglobin 11.7 g/dL (12.0-15.0); Immature Granulocyte Percent A 0.1 % (0-0.5); Lymphocytes Absolute Auto 3.78 K/mm3 (0.9-3.2); Mean Corpuscular HGB Conc 32.3 g/dl (32-36); Mean Corpuscular Hemoglobin 28.6 pg (26-34); Mean Corpuscular Volume 88.5 fl (80-100); Nucleated Red Blood Cells Absolute Auto 0.000 K/mm3 (0.0-0.012); Nucleated Red Blood Cells Perc 0.0 % (0.0-0.2); Platelet Count Result 236 k/mm3 (150-375); Red Blood Count 4.09 M/mm3 (4.2-5.4); White Blood Count 7.9 K/mm3 (4.5-10.0)
[2025-05-29 21:14] LABS: INR 1.2; Partial Thromboplastin Time 25.9 Seconds (22.3-36.8); Prothrombin Time 14.6 Seconds (11.1-14.7)
[2025-05-29 21:23] LABS: Alanine Aminotransferase 14 U/L (6-35); Albumin Level 4.6 g/dL (3.5-5.1); Alkaline Phosphatase 50 U/L (38-126); Anion Gap 9 mmol/L (4-12); Aspartate Amino Transferase 25 U/L (14-36); Bilirubin,Total 0.3 mg/dL (0.2-1.3); Blood Urea Nitrogen 14 mg/dL (7-17); Calcium 9.2 mg/dL (8.4-10.2); Carbon Dioxide 23 mmol/L (22-30); Chloride 104 mmol/L (98-107); Estimated CRCL calculation 83 ml/min; Estimated Glomerular Filt Rate > 60; Glucose 112 mg/dL (65-110); Lipase 142 U/L (23-300); Potassium 3.8 mmol/L (3.4-5.0); Sodium 136 mmol/L (137-145); Total Protein 7.6 g/dL (6.3-8.2)
[2025-05-29 21:35] LABS: Troponin I < 0.012 ng/mL (0.000-0.034)
[2025-05-29 23:04] VITALS: O2SAT 99
[2025-05-29 23:05] VITALS: BP 120/73; PULSE 105; RESP 16; O2SAT 100
[2025-05-29 23:15] VITALS: BP 115/79; PULSE 87; RESP 12
[2025-05-29 23:16] VITALS: PULSE 94; RESP 20
[2025-05-29] MEDS: ASPIRIN 81 MG CHEWABLE TABLET 324 MG PO (23:16)
--- OUTSIDE RECORDS SUMMARY | 2025-05-29 23:27 | XMS_ITS | Clinical Summary ---
Author Organization [facility] Address [address] [place] [address] Care Team Providers Care Admitting Clerk Name Role Phone Barbra Clemente MD Primary Care Provider [phone] Allergies No known active allergies Medications ASHLYNA [...] patient's age to complete this topic Insurance [employer] OPEN [facility]ESS [facility] [employer] OPEN [facility]ESS [facility] [employer] OPEN ACCESS [facility] [employer] OPEN ACCESS [facility] Care Teams Admitting Clerk Relationship Specialty [place] [address] [facility] [address] [place] [id number] PCP - General INTERNAL MEDICINE 02/02/25
--- OUTSIDE RECORDS SUMMARY | 2025-05-29 23:27 | XMS_ITS | Clinical Summary ---
[facility] Address [address] [place] [address] Care Team Providers Care Lens Cementer Name Role Phone Unavailable Primary Care Provider [...] AM CDT Pulse 103 12/22/2023 11:20 AM DITCH INSPECTOR Temperature 36.7 C (98.1 F) 12/22/2023 11:20 AM DITCH INSPECTOR Respiratory Rate 18 12/22/2023 11:20 AM DITCH INSPECTOR Oxygen Saturation 99% 12/22/2023 11:20 AM DITCH INSPECTOR Inhaled Oxygen Concentration - - Weight 64.1 [...] Comments GC/CHLAMYDIA, UROGENITAL Routine 09/22/2023 10:16 AM DITCH INSPECTOR Screening for STD (sexually transmitted disease) CERV/VAG CYTO AGE BASED SCREEN PAP Routine 09/22/2023 10:16 AM DITCH INSPECTOR Screening for cervical cancer from Last 3 Months or Most Recently Relevant to Health Maintenance Results * GC/CHLAMYDIA, UROGENITAL (09/22/2023 10:16 AM DITCH INSPECTOR) C TRAC RNA NOT DETECTED NOT DETECTED [facility] [place] N.GONORRHOEAE RNA, TMA NOT DETECTED NOT DETECTED [facility] [place] COMMENT INFECTIOUS DISEASE [facility] [place] Comment: The analytical performance characteristics of this assay, when used to test SurePath(TM) specimens have been determined by [facility]. The modifications have not been cleared or approved by the FDA. This assay has been validated pursuant to the CLIA regulations and is used for clinical purposes. For additional information, please refer to https://education.FanBridge/faq/SVL216 (This link is being provided for information/ educational purposes only.) Test Performed at: [facility] [address] [place] [address] Breezy Andersen MD Genital SPECIMEN FROM VAGINA / Unknown 09/22/2023 10:16 AM DITCH INSPECTOR 09/23/2023 8:35 AM DITCH INSPECTOR Pat Choi BENCH WORKER APPRENTICE MICROBIOLOGY - GENERAL ORDERABLE S Final Result [facility] [phone] [facility] [address] [place] [address] * CERV/VAG CYTO AGE BASED SCREEN PAP (09/22/2023 10:16 AM DITCH INSPECTOR) COMMENT (PAP): [facility] [place] Comment: This order for age-based cervical cancer and STI screening follows ACOG guidelines(PB 168, 140, TKT193). See individual assays for performing site location. CLINICAL INFORMATION [facility] [place] Comment:SCREENING HEALTHY LAST MENSTRUAL PERIOD [facility] [place] Comment:NONE GIVEN PREV PAP: [facility] [place] Comment:NONE GIVEN PREV BX: [facility] [place] Comment:NONE GIVEN SOURCE [facility] [place] Comment:Endocervix ADEQUACY: [facility] [place] Comment: Satisfactory for evaluation. Endocervical/transformation zone component present. Age and/or menstrual status not provided PAP INTERP [facility] [place] Comment: Cytology Results: Negative for intraepithelial lesion or malignancy. CYTOLOGY INFECTION [facility] [place] Comment: Shift in vaginal rabia suggestive of bacterial vaginosis. COMMENT (PAP TEST) [facility] [place] Comment: This Pap test has been evaluated with computer assisted technology. MEDICAL CONCIERGE: [facility] [place] Comment: GWENDOLYN HINES(ASCP) CT screening location: [address], [address], [place] [address] [facility] [place] Comment: EXPLANATORY NOTE: The Pap is a [...] C TRAC RNA NOT DETECTED NOT DETECTED [facility] [place] N.GONORRHOEAE RNA, TMA NOT DETECTED NOT DETECTED [facility] [place] COMMENT INFECTIOUS DISEASE [facility] [place] Comment: The analytical performance characteristics of this assay, when used to test SurePath(TM) specimens have been determined by [facility]. The modifications have not been cleared or approved by the FDA. This assay has been validated pursuant to the CLIA regulations and is used for clinical purposes. For additional information, please refer to https://education.FanBridge/faq/SRJ771 (This link is being provided for information/ educational purposes only.) Test Performed at: [facility] [address] [address] [place] [address] Breezy Andersen MD TX2 Genital SWAB OF ENDOCERVIX / Unknown 09/22/2023 10:16 AM DITCH INSPECTOR 09/23/2023 6:22 AM DITCH INSPECTOR Pat Choi BENCH WORKER APPRENTICE PATHOLOGY/CYTOLOGY ORDERABLES nal Result [facility] [phone] [facility] [address] [address] [place] [address] from Last 3 Months or Most Recently Relevant to Health Maintenance Insurance [employer] PPO
--- OUTSIDE RECORDS SUMMARY | 2025-05-29 23:27 | XMS_ITS | Clinical Summary ---
Author Organization [address] Address [address] [place] [phone] Care Team Providers Care Fitter Mechanic Name Role Phone Unknown, Notinfile Primary Care [...] 03/12/2007, Additional history exists Insurance [facility] [id number] Care Teams Fitter Mechanic Relationship Specialty Start Date End Date Unknown, Notinfile PCP - General 08/01/24
--- OUTSIDE RECORDS SUMMARY | 2025-05-29 23:27 | XMS_ITS | Referral Summary ---
Author Organization [address] Address [address] [place] [address] Care Team Providers Care Barrel Header Name Role Phone Unknown, Notinfile Primary Care [...] Treatment Not on file Insurance [facility] [id number] Care Teams Barrel Header Relationship Specialty Start Date End Date Unknown, Notinfile PCP - General 08/01/24
--- NOTE | 2025-05-29 23:41 | ECG_ITS ---
Test Date: 2025-05-29 23:14:54 Measurements Intervals [place] Rate: 82 P: 80 NM: 130 QRS: 83 QRSD: 95 T: 64 QT: 367 QTc: 431 Interpretive Statements SINUS RHYTHM WITH SINUS ARRHYTHMIA Compared to ECG 05/29/2025 20:46:44 No significant changes Electronically Signed On 05-30-2025 16:39:17 CDT by Nat Shore M.D.
[2025-05-29 23:58] LABS: Troponin I < 0.012 ng/mL (0.000-0.034)
[2025-05-30 00:01] VITALS: PULSE 84; RESP 15; O2SAT 100
--- NOTE | 2025-05-30 00:18 | ED.CHESTPAIN ---
HPI - Chest Pain General Chief Complaint: Chest Pain Stated Complaint: SOB, CP, my L. leg is numb Time Seen by Provider: 05/29/25 23:18 History of Present Illness HPI narrative: 24-year-old female presenting to the emergency department with chest pain left-sided. Associated with some shortness of breath. Ongoing for last 2 days. Comes and goes, worse when she lies flat. States that she recently had an IUD inserted by her OBGYN last week and was taking some ibuprofen for the pain. She no longer has any cramping abdominal pain or significant vaginal bleeding. States that the symptoms in her chest started 2 days after the fact. No history of DVT or PE. No long travel or recent surgeries otherwise. No family history of blood disorders or blood clots. Chest pain is non radiating, no associated nausea, vomiting, abdominal pain, back pain. Was otherwise in her normal state of health. Previously on the Depo-Provera shot for last few years most recently 3 months ago. Related Data Home Medications ?Medication ?Instructions ?Recorded ?Confirmed ?Last Taken ?Type ferrous sulfate 27 mg iron tablet 27 mg PO BID 05/16/24 03/14/25 03/12/25 History metronidazole 500 mg tablet mg 03/14/25 Unknown History Allergies Allergy/AdvReac Type Severity Reaction Status Date / Time No Known Allergies Allergy Verified 03/14/25 19:28 Review of Systems Review of Systems: As reviewed above in HPI [facility] Past Medical History Medical History Blood transfusion reaction 03/13/25 (normal spontaneous vaginal delivery) Surgical History Surgical History History of elective Family History Family History Other No pertinent family history Social History Social History Smoking status: Never smoker Second hand tobacco smoke exposure: No Substance use: never Do You Feel Safe in your Home?: Yes Lack of Transportation: No Lack of Food: Never True Current Housing: I Have Housing Concerned About Future Housing: No Difficulty Paying Gas/Electric Bills: No Difficulty Paying for Meds: No Currently Unemployed: No Education: Bachelor's Degree Difficulty w/ Childcare or Family Care: No Spiritual care concerns: No Exam Narrative: GENERAL: [Well-appearing, well-nourished, and in no acute distress.] HEAD: [Normocephalic, atraumatic.] EYES: [PERRLA and EOMI.] ENT: Nares clear, no rhinorrhea or epistaxis. Mucous membranes moist. NECK: Supple. CHEST: [Clear to auscultation. No respiratory distress.] HEART: [Regular rate and rhythm]. No murmur heard. [Normal peripheral pulses.] ABDOMEN: [Soft, nondistended], [nontender], [No rigidity or guarding] EXTREMITIES: Normal range of motion. [No edema.] SKIN: Warm, dry, no rash. NEURO: [No focal deficits]. Alert and oriented [x3.] PSYCH: [Normal mood and affect.] Course Vital Signs Vital signs: Vital Signs Temperature 36.8 C 05/29/25 20:37 Pulse Rate 94 05/29/25 20:37 Respiratory Rate 18 05/29/25 20:37 Blood Pressure 131/77 05/29/25 20:37 Pulse Oximetry 100 05/29/25 20:37 Oxygen Delivery Room Air 05/29/25 20:37 Temperature 36.8 C 05/29/25 20:37 Pulse Rate 94 05/29/25 20:37 Respiratory Rate 18 05/29/25 20:37 Blood Pressure 131/77 05/29/25 20:37 Pulse Oximetry 100 05/29/25 20:37 Oxygen Delivery Room Air 05/29/25 23:20 MDM - Chest Pain MDM Narrative Medical decision making narrative: 24-year-old female presenting to the emergency department with chest pain left-sided. Associated with some shortness of breath. Ongoing for last 2 days. Comes and goes, worse when she lies flat. States that she recently had an IUD inserted by her OBGYN last week and was taking some ibuprofen for the pain. She no longer has any cramping abdominal pain or significant vaginal bleeding. States that the symptoms in her chest started 2 days after the fact. No history of DVT or PE. No long travel or recent surgeries otherwise. No family history of blood disorders or blood clots. Chest pain is non radiating, no associated nausea, vomiting, abdominal pain, back pain. Was otherwise in her normal state of health. Previously on the Depo-Provera shot for last few years most recently 3 months ago. Patient has an unremarkable physical examination, no signs of DVT on examination, strong symmetric pulses and warm extremities. Clear breath sounds throughout without any signs of reproducible chest pain on palpation or position changes. No tachypnea, tachycardia, fever, hypoxia blood pressure anomalies. Differential diagnosis include viral syndrome, pleuritis, bronchitis, pneumonia, pneumothorax, less likely thromboembolic disease such as PE given her low Wells criteria. Dimer will be sufficient to rule this out. Laboratory studies obtained including troponin, EKG, chest x-ray, CBC, CMP. D-dimer obtained. Lab showed no leukocytosis or anemia worse than her baseline. Normal platelet count. Coagulation panel is normal. D-dimer is normal. Electrolytes unremarkable. Normal creatinine, normal glucose, normal LFTs. Troponin is negative initial and 3 hour delta negative. Chest x-ray shows no cardiopulmonary process. EKG shows sinus rhythm without any ST segment elevations or depressions. Given patient's unremarkable workup and overall well being and state of health she can be safely discharged home at this time. She has a appointment with her OBGYN tomorrow morning which she was encouraged to keep to further discuss her IUD and symptoms. Patient given return precautions and discharge instructions. Medical Records Data Attestation: I reviewed the patient's medical records. Lab Data Attestation: I reviewed the patient's lab results. 05/29/25 20:53 05/29/25 20:53 Labs: Lab Results 05/29/25 05/29/25 Range/Units 20:53 23:17 WBC 7.9 (4.5-10.0) K/mm3 RBC 4.09 L (4.2-5.4) M/mm3 Hgb 11.7 L D (12.0-15.0) g/dL Hct 36.2 L (37.0-47.0) % MCV 88.5 (80-100) fl MCH 28.6 (26-34) pg MCHC 32.3 (32-36) g/dl RDW 12.7 (11.5-14.5) % Plt Count 236 (150-375) k/mm3 MPV 10.3 (7.4-10.4) fl Immature Gran % (Auto) 0.1 (0-0.5) % Neut % (Auto) 44.0 L (45.5-73.1) % Lymph % (Auto) 48.1 H (18.3-44.2) % [place] % (Auto) 6.1 (2.6-8.5) % Eos % (Auto) 1.1 (0-4.4) % Baso % (Auto) 0.6 (0.2-1.2) % Lymph # (Auto) 3.78 H (0.9-3.2) K/mm3 [place] # (Auto) 0.5 (0.1-0.6) K/mm3 Eos # (Auto) 0.1 (0-0.3) K/mm3 Baso # (Auto) 0.1 (0.0-0.1) K/mm3 Abs Immat Gran (auto) 0.01 (0.00-0.031) K/mm3 Absolute Neuts (auto) 3.5 (1.3-6.7) K/mm3 Absolute Nucleated RBC 0.000 (0.0-0.012) K/mm3 Nucleated RBC % 0.0 (0.0-0.2) % PT 14.6 (11.1-14.7) Seconds INR 1.2 APTT 25.9 (22.3-36.8) Seconds D-Dimer 0.31 (<0.48) ug/mL Sodium 136 L (137-145) mmol/L Potassium 3.8 (3.4-5.0) mmol/L Chloride 104 (98-107) mmol/L Carbon Dioxide 23 (22-30) mmol/L Anion Gap 9 (4-12) mmol/L BUN 14 D (7-17) mg/dL Creatinine 0.79 (0.7-1.0) mg/dL Estim Creat Clear Calc 83 ml/min Estimated GFR > 60 (59 - ) Glucose 112 H (65-110) mg/dL Calcium 9.2 (8.4-10.2) mg/dL Total Bilirubin 0.3 (0.2-1.3) mg/dL AST 25 (14-36) U/L ALT 14 (6-35) U/L Alkaline Phosphatase 50 (38-126) U/L Troponin I < 0.012 < 0.012 (0.000-0.034) ng/mL Total Protein 7.6 (6.3-8.2) g/dL Albumin 4.6 (3.5-5.1) g/dL Lipase 142 (23-300) U/L Imaging Data Attestation: I personally reviewed and interpreted this imaging study as follows: My impression: Impressions Chest X-Ray 05/29/25 21:21 IMPRESSION: No acute cardiopulmonary process. ECG Data EKG #1: Attestation: I personally reviewed and interpreted this ECG as follows: ECG completion date: 05/30/25 ECG completion time: 23:14 Prior ECG tracings: available for review Interpretation: No ST segment elevations, depressions or inversions. QTC 431, NM interval 130, rate of 82 beats per minute. Normal sinus rhythm with no previous EKG comparison changes Discharge Plan Discharge Clinical Impression: Atypical chest pain Patient Disposition: Home Condition: Stable Instructions: Antibiotic Form, Chest Pain (ED), Chest Wall Pain (ED) Additional Instructions: Your cardiac workup was negative here in the emergency department. No signs of a blood clot. No signs of pneumonia or bronchitis. Your vital signs are all normal. Unclear exact etiology for your chest pain shortness a breath but no signs of any urgent or emergent concerns today and you are safe to go home. Talk to your OBGYN tomorrow morning regarding your IUD. Return with any new or worsening concerns at any time. Would recommend taking up to 600 mg ibuprofen every 6 hours in addition to 1000 mg of ibuprofen every 8 hours. Patient Language: Armenian Prescriptions: No Action metronidazole 500 mg tablet ferrous sulfate 27 mg iron Tablet 27 mg PO BID ibuprofen 600 mg tablet 600 mg PO Q6H PRN (Reason: pain) Qty: 30 0RF Follow-up/Referrals: PHYSICIAN,TRACTOR MECHANIC HELPER [Primary Care Provider] - Time of Disposition: 00:26
[2025-05-30 00:25] VITALS: PULSE 85; RESP 16; O2SAT 98
== END 2025-05-30 00:34 | disposition home or self-care (01) ==
PROVIDERS: Emergency Provider Student in an Organized Health Care Education/Training Program
DX: R07.89 Other chest pain (principal); Z97.5 Presence of (intrauterine) contraceptive device
CPT/HCPCS: 36415; 71046; 80053; 83690; 84484; 85025; 85380; 85610; 85730; 93005; 99284; A9270

== ENCOUNTER 2025-08-16 16:41 | Emergency (ER) | payer OTHER, SELFPAY ==
[2025-08-16 17:10] VITALS: BP 111/67; PULSE 98; RESP 18; TEMP 36.2; O2SAT 100
[2025-08-16 17:41] LABS: EDCOVIDSCREEN Negative (Negative); EDINFLUASCREEN Negative (Negative); EDINFLUBSCREEN Negative (Negative)
--- NOTE | 2025-08-16 17:41 | ED.ABDPAIN ---
HPI - Abdominal Pain General Chief Complaint: Nausea/Vomiting/Diarrhea Stated Complaint: stomach Time Seen by Provider: 08/16/25 17:00 Source: patient and RN notes reviewed Mode of arrival: ambulatory Limitations: no limitations History of Present Illness HPI narrative: 24-year-old female presents [facility] complaining of nausea and vomiting, body aches, generalized abdominal pain since yesterday. Patient started vomiting yesterday. Patient continues to vomit today, she states she has vomited at least 8 times. Last time patient vomited approximately 1 hour ago prior to arrival. Patient says he has been of the keep fluids down after each episode of emesis, however she is unable to keep any food down. Patient denies any diarrhea, fevers, chills, sore throat, upper respiratory symptoms, cough, chest pain, breathing problems, or any other symptoms. Patient has not tried any [id number] to help with symptoms. Patient denies any significant past medical history. Patient denies any drugs, marijuana, alcohol use. Patient denies any chance of , she states she has an IUD. Related Data Home Medications ?Medication ?Instructions ?Recorded ?Confirmed ?Last Taken ?Type ferrous sulfate 27 mg iron tablet 27 mg PO BID 05/16/24 08/16/25 03/12/25 History valacyclovir 500 mg tablet mg 08/16/25 Unknown History Allergies Allergy/AdvReac Type Severity Reaction Status Date / Time No Known Allergies Allergy Verified 08/16/25 16:56 Review of Systems Review of Systems: CONSTITUTIONAL: Denies fever, chills, or sweats. Positive for body aches. EYES: Denies visual changes, redness, or discharge. ENT: Denies rhinorrhea, congestion, sore throat, or otalgia. CARDIOVASCULAR: Denies chest pain, palpitations, or edema. RESPIRATORY: Denies cough or dyspnea. GASTROINTESTINAL: Negative for diarrhea, bloody stools, vomiting blood, hematochezia. Positive for nausea, vomiting, generalized abdominal pain. GENITOURINARY: Denies dysuria or hematuria. SKIN: Denies rash or itching. MUSCULOSKELETAL: Denies back pain, joint pain, or myalgia. NEUROLOGIC: Denies headache, numbness, or weakness. PSYCHIATRIC: Denies anxiety or depression. All other systems reviewed are negative, except as documented in HPI. [facility] Past Medical History Medical History Blood transfusion reaction 03/13/25 (normal spontaneous vaginal delivery) Surgical History Surgical History History of elective Family History Family History Other No pertinent family history Social History Social History Smoking status: Never smoker Second hand tobacco smoke exposure: No Substance use: never Do You Feel Safe in your Home?: Yes Lack of Transportation: No Lack of Food: Never True Current Housing: I Have Housing Concerned About Future Housing: No Difficulty Paying Gas/Electric Bills: No Difficulty Paying for Meds: No Currently Unemployed: No Education: Bachelor's Degree Difficulty w/ Childcare or Family Care: No Spiritual care concerns: No Exam Narrative: GENERAL: This is a well-nourished, well-developed adult, in no apparent distress. They are non ill-appearing, nontoxic appearing. HEAD: normocephalic, atraumatic. EYES: Sclera clear/white. Vision is grossly intact. Conjunctiva normal bilaterally. Extraocular movements intact. EARS: External ears normal, Hearing grossly intact. NOSE: External nose normal THROAT: Mucous membranes moist NECK: Normal range of motion CARDIOVASCULAR: Regular rate and rhythm RESPIRATORY: Respiratory rate normal, respiratory effort nonlabored, no respiratory distress GASTROINTESTINAL: Abdomen soft, flat, non-tender, nondistended. Bowel sounds are active. No hepato-splenomegaly, or palpable masses. No guarding or rigidity. No rebound tenderness. Negative McBurney's point, negative obturator sign, negative psoas sign, negative rovsing sign. SKIN: warm, Dry, intact with no suspicious lesions or rash, good texture and turgor. NEURO: awake, alert, and oriented to person, place and time. There were no obvious focal neurologic abnormalities. EXTREMITIES: No joint tenderness, effusion, or edema noted. BACK: Nontender without deformity. No CVA tenderness. Course Course Emergency Course: Portions of this record may have been created with voice recognition software Level of Care: Express Care Visit Vital Signs Vital signs: Vital Signs Temperature 97.2 F L 08/16/25 17:10 Pulse Rate 98 08/16/25 17:10 Respiratory Rate 18 08/16/25 17:10 Blood Pressure 111/67 08/16/25 17:10 Pulse Oximetry 100 08/16/25 17:10 Oxygen Delivery Room Air 08/16/25 17:10 Temperature 97.2 F L 08/16/25 17:10 Pulse Rate 98 08/16/25 17:10 Respiratory Rate 18 08/16/25 17:10 Blood Pressure 111/67 08/16/25 17:10 Pulse Oximetry 100 08/16/25 17:10 Oxygen Delivery Room Air 08/16/25 17:10 MDM - Abdominal Pain MDM Narrative Medical decision making narrative: COVID and flu were negative. No peritoneal findings on exam. No abdominal tenderness, no rigidity. No guarding of abdomen. Moist mucous membranes, no tachycardia. Patient does not clinically appear dehydrated. Patient likely has a viral gastroenteritis. Prescribe Zofran as needed for nausea and vomiting. Discussed importance of fluids and electrolyte supplementation such as Pedialyte. Advised patient advanced diet as tolerated start with keeping fluids/clear liquids down 1st. Discussed strict ER precautions the patient such as developing severe abdominal pain, worsening nausea vomiting that is uncontrolled by Medicine, concerns of dehydration, bloody stools, fevers, or any serious concerns. Discussed physical exam findings. Advised supportive measures and signs/symptoms to go to the ER. Pt is appropriate for outpt treatment and f/u. Differential Diagnosis Differential diagnosis: Likely abdominal pain, acute appendicitis, constipation, gastroenteritis, small bowel obstruction and other (Rotavirus, norovirus, viral illness) Lab Data Attestation: I reviewed the patient's lab results. Labs: Lab Results 08/16/25 Range/Units 17:39 POC Influenza A Ag Pending POC Influenza B Ag Pending POC SARS CoV-2 Ag Pending Discharge Plan Discharge Clinical Impression: Gastroenteritis Patient Disposition: Home Condition: Stable Instructions: Gastroenteritis (ED) Additional Instructions: Your rapid COVID and flu were negative. It is likely have a viral gastroenteritis. This is normally a self-limiting condition or resolve within 24-72 hours. However sometimes symptoms may linger on up to 7 days. Recommend hydration with plenty of fluids and electrolyte supplementation such as Pedialyte. Eat as tolerated, start with clear liquid diet and progressed to a normal diet starting with oats, toasts, breads, soups, bannas, apple sauce, or anything that is easy on the stomach. Follow-up PCP in 3-5 days. You may take Zofran as needed for nausea or vomiting. If you are unable to keep anything down, developed abdominal pain, fevers, uncontrollable diarrhea, concerns of dehydration, or any other concerns please go to the ER immediately. Patient Language: [place] Prescriptions: New ondansetron 4 mg tablet,disintegrating 4 mg PO Q6-8H PRN (Reason: nausea and vomiting) Qty: 14 0RF No Action valacyclovir 500 mg tablet ferrous sulfate 27 mg iron Tablet 27 mg PO BID ibuprofen 600 mg tablet 600 mg PO Q6H PRN (Reason: pain) Qty: 30 0RF Follow-up/Referrals: UNKNOWN,DOCTOR [Primary Care Provider] Time of Disposition: 17:38
== END 2025-08-16 17:40 | disposition home or self-care (01) ==
DX: K52.9 Noninfective gastroenteritis and colitis, unspecified (principal); Z20.822 Contact with and (suspected) exposure to COVID-19; Z97.5 Presence of (intrauterine) contraceptive device
CPT/HCPCS: 87426; 87804; 99213; G0463